=== PATIENT | male | born 1950 | race Caucasian/White ===

== ENCOUNTER → 2018-05-24 16:50 | Outpatient (CLI) | payer MEDICARE, BC, SELFPAY ==
--- NOTE | 2018-05-24 17:12 | CT_ITS ---
STUDY: CT ABDOMEN WITH AND WITHOUT CONTRAST REASON FOR EXAM: Male, 68 years old. Elevated liver enzymes. RADIATION DOSAGE (If Supplied By Facility): CTDIvol = ( 26.19 ) mGy, DLP = ( 1806.78 ) mGycm TECHNIQUE: Transaxial images were obtained pre and post I.V. administration of 100mL ml of Isovue 300, and without oral contrast. Sagittal and coronal images were reconstructed. Individualized dose optimization techniques were used for this CT. COMPARISON: None. FINDINGS: The visualized lung bases are unremarkable. The visualized portions of the heart are within normal limits. There is decreased attenuation of the liver consistent with steatosis. Normal gallbladder and extrahepatic biliary system. Normal spleen. Normal pancreas. Normal bilateral adrenal glands. Small cysts are seen in both kidneys. There is a small hiatal hernia. Normal small intestine. There are multiple colonic diverticula consistent with diverticulosis. The appendix is visualized and appears normal. There is diffuse atherosclerotic calcification of the abdominal aorta, without a demonstrated aneurysm. Normal inferior vena cava. There is borderline retroperitoneal lymphadenopathy with enlarged nodes no greater than 10mm in the short axis diameter. Normal abdominal wall. Normal osseous structures. CT/Abdomen W/WO IV Contrast IMPRESSION: Fatty infiltration of the liver. Electronically Signed: Rigoberto Bolden MD at 15:09 EDT Tel [phone], Service support ,
[2018-05-24 18:09] LABS: Amylase 43 U/L (25-115); Lipase 354 U/L (73-393)
== END ==
PROVIDERS: Family Provider Nurse Practitioner Family; PCP Nurse Practitioner Family; Visit Provider Nurse Practitioner Family
DX: R74.8 Abnormal levels of other serum enzymes (principal)
CPT/HCPCS: 36415; 74170; 82150; 83690; Q9967

== ENCOUNTER → 2018-08-10 07:37 | Outpatient (CLI) | payer MEDICARE, BC, SELFPAY ==
[2018-08-10 07:58] LABS: Absolute Lymphocyte Count 1.89 X10^3/ul (0.83-4.51); Basophil% 0.2 % (0-1); Eosinophil# 0.12 X10^3/uL; Eosinophils% 2.2 % (0-5); Hematocrit 35.2 % (40-54); Hemoglobin 11.3 g/dl (13.0-16.5); Lymphocyte # 1.89 X10^3/ul (4.0); Lymphocyte % 34.7 % (19-41); Mean Corp Hgb Conc 32.1 g/gl (32-36); Mean Corpuscular Hgb 28.9 pg (27.0-32.0); Mean Platelet Vol. 9.8 fl (6.2-12.0); Monocyte# 0.45 X10^3/uL; Monocyte% 8.3 % (0-10); Neutrophil # 2.98 X10^3/uL (2.7-7.7); Neutrophil % 54.6 % (47-70); Platelet Count 112 K/mm3 (150-450); RBC Distribution Width CV 14.5 % (11.6-14.6); RBC Distribution Width SD 47.4 fl (35.1-43.9); Red Blood Count 3.91 M/mm3 (4.6-6.2); White Blood Count 5.5 K/mm3 (4.4-11.0)
[2018-08-10 07:59] LABS: Basophil# 0.01 X10^3/uL
[2018-08-10 08:01] LABS: POSITIVE COUNT NO; POSITIVE DIFFERENTIAL NO; POSITIVE MORPHOLOGY NO
[2018-08-10 08:17] LABS: Hemoglobin A1c 9.4 % (4.2-6.3)
[2018-08-10 08:27] LABS: ALB/GLOB Ratio 0.8 RATIO (0.9-2.4); AST(SGOT) 132 U/L (15-37); Alanine Aminotransfer ALT/SGPT 196 U/L (16-61); Albumin, Serum 3.2 g/dL (3.2-5.0); Alkaline Phosphatase 101 U/L (45-117); Anion Gap 12 (5-15); BUN 24 mg/dL (7-18); BUN/Creat Ratio 20.7 RATIO (10-20); Chloride 100 mmol/L (98-107); Cholesterol 133 mg/dL (200); Creatinine, Serum 1.16 mg/dL (0.70-1.30); EST Glomerular Filtration Rate 67 mL/min (>60); Est Glom Filt Rate - Afr Amer 81 mL/min (>60); GGTP 671 U/L (15-85); Globulin 4.1 g/dL (2.2-4.2); Glucose 247 mg/dL (74-106); High Density Lipoprotein 26 mg/dL; PSA,Total - Annual Screen 1.23 ng/mL (0.00-4.00); Potassium 4.4 mmol/L (3.5-5.1); Protein, Total 7.3 g/dL (6.4-8.2); Sodium Level 136 mmol/L (136-145); Triglycerides 234 mg/dL; Uric Acid 4.9 mg/dL (3.5-7.2); Very Low Density Lipoprotein 47 mg/dL (5-40)
== END ==
PROVIDERS: Family Provider Nurse Practitioner Family; PCP Nurse Practitioner Family; Visit Provider Nurse Practitioner Family
DX: E11.9 Type 2 diabetes mellitus without complications (principal); E78.5 Hyperlipidemia, unspecified; I10 Essential (primary) hypertension; N40.0 Benign prostatic hyperplasia without lower urinary tract symptoms; R74.8 Abnormal levels of other serum enzymes; M10.9 Gout, unspecified
CPT/HCPCS: 36415; 80053; 80061; 82977; 83036; 84153; 84550; 85025; G0103

== ENCOUNTER → 2019-02-26 09:00 | Outpatient (CLI) | payer MEDICARE, BC, SELFPAY ==
[2018-12-17 08:28] VITALS: BMI 42.5
[2019-02-26 09:39] LABS: Absolute Lymphocyte Count 2.29 X10^3/ul (0.83-4.51); Absolute Neutrophil Count 3.3 X10^3/uL (2.0-7.7); Basophil# 0.02 X10^3/uL; Basophil% 0.3 % (0-1); Eosinophils% 1.6 % (0-5); Hematocrit 38.4 % (40-54); Hemoglobin 12.1 g/dl (13.0-16.5); Lymphocyte # 2.29 X10^3/ul (4.0); Lymphocyte % 36.9 % (19-41); Mean Corp Hgb Conc 31.5 g/gl (32-36); Mean Corpuscular Volume 82.4 fL (80-94); Mean Platelet Vol. 9.7 fl (6.2-12.0); Monocyte# 0.53 X10^3/uL; Monocyte% 8.5 % (0-10); Neutrophil # 3.26 X10^3/uL (2.7-7.7); Neutrophil % 52.5 % (47-70); POSITIVE COUNT NO; POSITIVE DIFFERENTIAL NO; POSITIVE MORPHOLOGY NO; Platelet Count 130 K/mm3 (150-450); RBC Distribution Width CV 15.6 % (11.6-14.6); RBC Distribution Width SD 46.3 fl (35.1-43.9); Red Blood Count 4.66 M/mm3 (4.6-6.2); White Blood Count 6.2 K/mm3 (4.4-11.0)
[2019-02-26 09:58] LABS: Microalbumin,Random Urine 88.9 mg/L (NO RANGE EST.); Microalbumin:Creatinine Ratio 111.1 mg/g CRE (<30 mg/g CRE)
[2019-02-26 10:02] LABS: Hemoglobin A1c 7.3 % (4.2-6.3)
[2019-02-26 10:19] LABS: ALB/GLOB Ratio 0.9 RATIO (0.9-2.4); AST(SGOT) 28 U/L (15-37); Alanine Aminotransfer ALT/SGPT 34 U/L (16-61); Albumin, Serum 3.7 g/dL (3.2-5.0); Alkaline Phosphatase 96 U/L (45-117); Anion Gap 8 (5-15); BUN 18 mg/dL (7-18); BUN/Creat Ratio 14.4 RATIO (10-20); Calcium,Total 9.1 mg/dL (8.5-10.1); Chloride 107 mmol/L (98-107); Cholesterol 112 mg/dL (200); Creatinine, Serum 1.25 mg/dL (0.70-1.30); EST Glomerular Filtration Rate 61 mL/min (>60); Est Glom Filt Rate - Afr Amer 74 mL/min (>60); Glucose 111 mg/dL (74-106); High Density Lipoprotein 30 mg/dL; Potassium 3.9 mmol/L (3.5-5.1); Protein, Total 7.7 g/dL (6.4-8.2); Sodium Level 142 mmol/L (136-145); Triglycerides 143 mg/dL; Uric Acid 7.9 mg/dL (3.5-7.2); Very Low Density Lipoprotein 29 mg/dL (5-40)
== END ==
PROVIDERS: Family Provider Internal Medicine; PCP Internal Medicine; Referring Provider Internal Medicine; Visit Provider Internal Medicine
DX: I34.0 Nonrheumatic mitral (valve) insufficiency (principal); E78.00 Pure hypercholesterolemia, unspecified; I10 Essential (primary) hypertension; E11.9 Type 2 diabetes mellitus without complications; M10.9 Gout, unspecified
CPT/HCPCS: 80053; 80061; 82043; 82570; 83036; 84550; 85025

== ENCOUNTER → 2019-04-23 08:44 | Outpatient (CLI) | payer MEDICARE, BC, SELFPAY ==
[2019-03-30 17:19] VITALS: BMI 42.5
[2019-04-23 10:28] LABS: Anion Gap 5 (5-15); BUN 27 mg/dL (7-18); BUN/Creat Ratio 22.9 RATIO (10-20); Calcium,Total 8.9 mg/dL (8.5-10.1); Chloride 106 mmol/L (98-107); Creatinine, Serum 1.18 mg/dL (0.70-1.30); EST Glomerular Filtration Rate 65 mL/min (>60); Est Glom Filt Rate - Afr Amer 79 mL/min (>60); Glucose 128 mg/dL (74-106); Sodium Level 140 mmol/L (136-145)
[2019-04-23 10:32] LABS: Hemoglobin A1c 7.1 % (4.2-6.3)
== END ==
PROVIDERS: Family Provider Internal Medicine; PCP Internal Medicine; Referring Provider Internal Medicine; Visit Provider Internal Medicine
DX: E11.9 Type 2 diabetes mellitus without complications (principal)
CPT/HCPCS: 36415; 80048; 83036

== ENCOUNTER → 2019-11-05 09:01 | Outpatient (CLI) | payer MEDICARE, BC, SELFPAY ==
[2019-07-07 19:13] VITALS: BMI 42.5
[2019-11-05 10:33] LABS: Anion Gap 6 (5-15); BUN 22 mg/dL (7-18); BUN/Creat Ratio 16.8 RATIO (10-20); Calcium,Total 9.3 mg/dL (8.5-10.1); Chloride 105 mmol/L (98-107); Creatinine, Serum 1.31 mg/dL (0.70-1.30); EST Glomerular Filtration Rate 58 mL/min (>60); Est Glom Filt Rate - Afr Amer 70 mL/min (>60); Glucose 136 mg/dL (74-106); Potassium 3.9 mmol/L (3.5-5.1); Sodium Level 139 mmol/L (136-145)
[2019-11-05 10:35] LABS: Microalbumin,Random Urine 96.9 mg/L (NO RANGE EST.); Microalbumin:Creatinine Ratio 87.3 mg/g CRE (<30 mg/g CRE)
== END ==
PROVIDERS: Family Provider Internal Medicine; PCP Internal Medicine; Referring Provider Internal Medicine; Visit Provider Internal Medicine
DX: I10 Essential (primary) hypertension (principal); E11.9 Type 2 diabetes mellitus without complications
CPT/HCPCS: 36415; 80048; 82043; 82570

== ENCOUNTER → 2020-06-30 | Outpatient (CLI) | payer MEDICARE, BC, SELFPAY ==
[2019-12-22 17:18] VITALS: BMI 41.7
[2020-06-30 10:14] LABS: Absolute Neutrophil Count 4.4 X10^3/uL (2.0-7.7); Basophil# 0.03 X10^3/uL; Basophil% 0.4 % (0-1); Eosinophil# 0.14 X10^3/uL; Eosinophils% 1.8 % (0-5); Hematocrit 40.2 % (40-54); Hemoglobin 12.6 g/dL (13.0-16.5); Lymphocyte % 32.5 % (19-41); Mean Corp Hgb Conc 31.3 g/dL (32-36); Mean Corpuscular Hgb 26.4 pg (27.0-32.0); Mean Corpuscular Volume 84.3 fL (80-94); Monocyte% 7.8 % (0-10); NRBC Flagged by Analyzer 0 % (0-5); Neutrophil # 4.41 X10^3/uL (2.7-7.7); Neutrophil % 57.2 % (47-70); Platelet Count 188 K/mm3 (150-450); RBC Distribution Width CV 15.2 % (11.6-14.6); RBC Distribution Width SD 46.5 fl (35.1-43.9); Red Blood Count 4.77 M/mm3 (4.6-6.2); White Blood Count 7.7 K/mm3 (4.4-11.0)
[2020-06-30 10:26] LABS: Hemoglobin A1c 7.3 % (3.8-5.6)
[2020-06-30 10:32] LABS: Microalbumin,Random Urine 22.9 mg/L (NO RANGE EST.); Microalbumin:Creatinine Ratio 139.6 mg/g CRE (<30 mg/g CRE)
[2020-06-30 10:35] LABS: ALB/GLOB Ratio 0.8 RATIO (0.9-2.4); AST(SGOT) 36 U/L (15-37); Alanine Aminotransfer ALT/SGPT 47 U/L (16-61); Albumin, Serum 3.6 g/dL (3.2-5.0); Alkaline Phosphatase 92 U/L (45-117); Anion Gap 4 (5-15); BUN 25 mg/dL (7-18); BUN/Creat Ratio 20.8 RATIO (10-20); Calcium,Total 9.3 mg/dL (8.5-10.1); Chloride 105 mmol/L (98-107); Cholesterol 149 mg/dL (200); EST Glomerular Filtration Rate 64 mL/min (>60); Est Glom Filt Rate - Afr Amer 77 mL/min (>60); Globulin 4.4 g/dL (2.2-4.2); Glucose 108 mg/dL (74-106); High Density Lipoprotein 25 mg/dL; Potassium 3.9 mmol/L (3.5-5.1); Sodium Level 137 mmol/L (136-145); Triglycerides 299 mg/dL; Very Low Density Lipoprotein 60 mg/dL (5-40)
== END | disposition home or self-care (01) ==
PROVIDERS: PCP Internal Medicine; Referring Provider Internal Medicine; Visit Provider Internal Medicine
DX: I10 Essential (primary) hypertension (principal); E11.9 Type 2 diabetes mellitus without complications
CPT/HCPCS: 36415; 80053; 80061; 82043; 82570; 83036; 85025

== ENCOUNTER → 2020-07-10 09:53 | Outpatient (CLI) | payer MEDICARE, BC, SELFPAY ==
[2020-07-10 09:34] VITALS: BMI 30.1
[2020-07-10 12:48] LABS: PSA,Total - Annual Screen 1.78 ng/mL (0.00-4.00)
== END ==
PROVIDERS: PCP Internal Medicine; Referring Provider Internal Medicine; Visit Provider Internal Medicine
DX: N40.0 Benign prostatic hyperplasia without lower urinary tract symptoms (principal)
CPT/HCPCS: 36415; 84153; G0103

== ENCOUNTER → 2021-05-13 13:57 | Outpatient (CLI) | payer MEDICARE, BC, SELFPAY ==
[2021-05-13 13:23] VITALS: BMI 42.9
[2021-05-13 15:26] LABS: Absolute Lymphocyte Count 2.51 X10^3/uL (0.83-4.51); Absolute Neutrophil Count 4.8 X10^3/uL (2.0-7.7); Basophil# 0.02 X10^3/uL; Basophil% 0.2 % (0-1); Eosinophils% 2.4 % (0-5); Hematocrit 43.6 % (40-54); Hemoglobin 13.7 g/dL (13.0-16.5); Lymphocyte # 2.51 X10^3/ul (0.83-4.51); Lymphocyte % 30.4 % (19-41); Mean Corp Hgb Conc 31.4 g/dL (32-36); Mean Corpuscular Hgb 27.2 pg (27.0-32.0); Mean Corpuscular Volume 86.5 fL (80-94); Mean Platelet Vol. 10.2 fl (6.2-12.0); Monocyte% 8.5 % (0-10); NRBC Flagged by Analyzer 0 % (0-5); Neutrophil # 4.78 X10^3/uL (2.7-7.7); Platelet Count 158 K/mm3 (150-450); RBC Distribution Width CV 14.7 % (11.6-14.6); RBC Distribution Width SD 46.5 fl (35.1-43.9); Red Blood Count 5.04 M/mm3 (4.6-6.2); White Blood Count 8.3 K/mm3 (4.4-11.0)
[2021-05-13 15:47] LABS: ALB/GLOB Ratio 0.9 RATIO (0.9-2.4); AST(SGOT) 40 U/L (15-37); Alanine Aminotransfer ALT/SGPT 72 U/L (16-61); Albumin, Serum 3.8 g/dL (3.2-5.0); Alkaline Phosphatase 111 U/L (45-117); Anion Gap 9 (5-15); BUN 27 mg/dL (7-18); BUN/Creat Ratio 22.1 RATIO (10-20); Calcium,Total 9.4 mg/dL (8.5-10.1); Chloride 102 mmol/L (98-107); Cholesterol 126 mg/dL (200); Creatinine, Serum 1.22 mg/dL (0.70-1.30); EST Glomerular Filtration Rate 62 mL/min (>60); Est Glom Filt Rate - Afr Amer 76 mL/min (>60); Globulin 4.2 g/dL (2.2-4.2); Glucose 156 mg/dL (74-106); High Density Lipoprotein 29 mg/dL; Sodium Level 137 mmol/L (136-145); Triglycerides 268 mg/dL; Very Low Density Lipoprotein 54 mg/dL (5-40)
== END ==
PROVIDERS: PCP Internal Medicine; Referring Provider Internal Medicine; Visit Provider Internal Medicine
DX: E11.9 Type 2 diabetes mellitus without complications (principal)
CPT/HCPCS: 36415; 80053; 80061; 82043; 82570; 85025

== ENCOUNTER 2021-07-26 17:06 | Outpatient (CLI) | payer MEDICARE, BC, SELFPAY ==
[2021-07-26 17:48] VITALS: BP 148/68; PULSE 91; RESP 20; TEMP 37.6; O2SAT 94; BMI 39.9
[2021-07-26] MEDS: 0.9% Saline Lock 10 ML Syringe IV (17:53)
[2021-07-26 18:30] VITALS: BP 138/73; PULSE 83; RESP 20; TEMP 37.5; O2SAT 97
[2021-07-26 19:30] VITALS: BP 151/77; PULSE 81; RESP 18; TEMP 37; O2SAT 97
== END 2021-07-26 19:34 | disposition home or self-care (01) ==
LOC: ICUOUT 17:06 → MS2 17:30
PROVIDERS: PCP Internal Medicine; Referring Provider Nurse Practitioner Acute Care; Visit Provider Nurse Practitioner Acute Care
DX: Z23 Encounter for immunization (principal); U07.1 COVID-19
CPT/HCPCS: J7050; M0243; A4216; Q0244

== ENCOUNTER → 2021-08-14 14:20 | Outpatient (CLI) | payer MEDICARE, BC, SELFPAY ==
[2021-08-14 15:22] LABS: Anion Gap 8 (5-15); BUN 32 mg/dL (7-18); BUN/Creat Ratio 30.5 RATIO (10-20); Calcium,Total 9.5 mg/dL (8.5-10.1); Chloride 102 mmol/L (98-107); Creatinine, Serum 1.05 mg/dL (0.70-1.30); EST Glomerular Filtration Rate 74 mL/min (>60); Est Glom Filt Rate - Afr Amer 90 mL/min (>60); Glucose 125 mg/dL (74-106); Potassium 4.1 mmol/L (3.5-5.1); Sodium Level 137 mmol/L (136-145)
== END ==
PROVIDERS: PCP Internal Medicine; Referring Provider Internal Medicine; Visit Provider Internal Medicine
DX: E11.9 Type 2 diabetes mellitus without complications (principal); I10 Essential (primary) hypertension
CPT/HCPCS: 36415; 80048

== ENCOUNTER → 2022-05-05 | Outpatient (CLI) | payer MEDICARE, BC, SELFPAY ==
[2022-05-05 12:31] LABS: Absolute Lymphocyte Count 2.25 X10^3/uL (0.83-4.51); Absolute Neutrophil Count 3.6 X10^3/uL (2.0-7.7); Basophil# 0.03 X10^3/uL; Basophil% 0.5 % (0-1); Eosinophil# 0.19 X10^3/uL; Eosinophils% 2.9 % (0-5); Hematocrit 42.4 % (40-54); Hemoglobin 13.5 g/dL (13.0-16.5); Lymphocyte # 2.25 X10^3/ul (0.83-4.51); Lymphocyte % 33.8 % (19-41); Mean Corp Hgb Conc 31.8 g/dL (32-36); Mean Corpuscular Hgb 28.1 pg (27.0-32.0); Mean Corpuscular Volume 88.3 fL (80-94); Mean Platelet Vol. 10.2 fl (6.2-12.0); Monocyte# 0.58 X10^3/uL; Monocyte% 8.7 % (0-10); NRBC Flagged by Analyzer 0 % (0-5); Neutrophil # 3.57 X10^3/uL (2.7-7.7); Neutrophil % 53.6 % (47-70); Platelet Count 140 K/mm3 (150-450); RBC Distribution Width CV 14.6 % (11.6-14.6); RBC Distribution Width SD 46.9 fl (35.1-43.9); White Blood Count 6.7 K/mm3 (4.4-11.0)
[2022-05-05 13:04] LABS: ALB/GLOB Ratio 0.9 RATIO (0.9-2.4); AST(SGOT) 75 U/L (15-37); Alanine Aminotransfer ALT/SGPT 114 U/L (16-61); Albumin, Serum 3.7 g/dL (3.2-5.0); Alkaline Phosphatase 80 U/L (45-117); Anion Gap 9 (5-15); BUN 26 mg/dL (7-18); Calcium,Total 9.4 mg/dL (8.5-10.1); Chloride 103 mmol/L (98-107); Cholesterol 139 mg/dL (200); Creatinine, Serum 1.18 mg/dL (0.70-1.30); EST Glomerular Filtration Rate 65 mL/min (>60); Est Glom Filt Rate - Afr Amer 78 mL/min (>60); Globulin 3.9 g/dL (2.2-4.2); Glucose 170 mg/dL (74-106); High Density Lipoprotein 31 mg/dL; Potassium 3.7 mmol/L (3.5-5.1); Protein, Total 7.6 g/dL (6.4-8.2); Sodium Level 137 mmol/L (136-145); Triglycerides 236 mg/dL; Very Low Density Lipoprotein 47 mg/dL (5-40)
== END | disposition home or self-care (01) ==
LOC: BIMLAB 09:13
PROVIDERS: PCP Internal Medicine; Referring Provider Internal Medicine; Visit Provider Internal Medicine
DX: E11.9 Type 2 diabetes mellitus without complications (principal)
CPT/HCPCS: 36415; 80053; 80061; 85025

== ENCOUNTER → 2022-09-08 | Outpatient (CLI) | payer MEDICARE, BC, SELFPAY ==
[2022-09-08 12:10] LABS: Absolute Lymphocyte Count 2.01 X10^3/uL (0.83-4.51); Absolute Neutrophil Count 4.1 X10^3/uL (2.0-7.7); Basophil# 0.02 X10^3/uL; Basophil% 0.3 % (0-1); Eosinophil# 0.12 X10^3/uL; Eosinophils% 1.7 % (0-5); Hematocrit 42.1 % (40-54); Hemoglobin 13.4 g/dL (13.0-16.5); Lymphocyte # 2.01 X10^3/ul (0.83-4.51); Lymphocyte % 28.7 % (19-41); Mean Corp Hgb Conc 31.8 g/dL (32-36); Mean Corpuscular Hgb 27.9 pg (27.0-32.0); Mean Corpuscular Volume 87.5 fL (80-94); Mean Platelet Vol. 9.8 fl (6.2-12.0); Monocyte# 0.69 X10^3/uL; Monocyte% 9.8 % (0-10); NRBC Flagged by Analyzer 0 % (0-5); Neutrophil # 4.14 X10^3/uL (2.7-7.7); Neutrophil % 59.1 % (47-70); Platelet Count 137 K/mm3 (150-450); RBC Distribution Width CV 14.9 % (11.6-14.6); RBC Distribution Width SD 48.3 fl (35.1-43.9); Red Blood Count 4.81 M/mm3 (4.6-6.2)
[2022-09-08 12:32] LABS: ALB/GLOB Ratio 0.8 RATIO (0.9-2.4); AST(SGOT) 45 U/L (15-37); Alanine Aminotransfer ALT/SGPT 74 U/L (16-61); Albumin, Serum 3.5 g/dL (3.2-5.0); Alkaline Phosphatase 73 U/L (45-117); Anion Gap 9 (5-15); BUN 30 mg/dL (7-18); BUN/Creat Ratio 25.6 RATIO (10-20); Calcium,Total 9.3 mg/dL (8.5-10.1); Chloride 104 mmol/L (98-107); Creatinine, Serum 1.17 mg/dL (0.70-1.30); EST Glomerular Filtration Rate 65 mL/min (>60); Est Glom Filt Rate - Afr Amer 79 mL/min (>60); Globulin 4.3 g/dL (2.2-4.2); Glucose 143 mg/dL (74-106); Potassium 3.7 mmol/L (3.5-5.1); Protein, Total 7.8 g/dL (6.4-8.2); Sodium Level 139 mmol/L (136-145)
== END | disposition home or self-care (01) ==
LOC: BIMLAB 10:53
PROVIDERS: PCP Internal Medicine; Referring Provider Internal Medicine; Visit Provider Internal Medicine
DX: E11.9 Type 2 diabetes mellitus without complications (principal)
CPT/HCPCS: 36415; 80053; 85025

== ENCOUNTER → 2023-05-20 | Outpatient (CLI) | payer MEDICARE, BC, SELFPAY ==
[2023-05-20 12:44] LABS: Absolute Lymphocyte Count 2.77 X10^3/uL (0.83-4.51); Basophil# 0.03 X10^3/uL; Basophil% 0.4 % (0-1); Eosinophil# 0.17 X10^3/uL; Eosinophils% 2.3 % (0-5); Hematocrit 43.7 % (40-54); Hemoglobin 13.8 g/dL (13.0-16.5); Lymphocyte # 2.77 X10^3/ul (0.83-4.51); Lymphocyte % 36.7 % (19-41); Mean Corp Hgb Conc 31.6 g/dL (32-36); Mean Corpuscular Hgb 28.6 pg (27.0-32.0); Mean Corpuscular Volume 90.7 fL (80-94); Mean Platelet Vol. 9.8 fl (6.2-12.0); Monocyte# 0.58 X10^3/uL; Monocyte% 7.7 % (0-10); NRBC Flagged by Analyzer 0 % (0-5); Neutrophil # 3.97 X10^3/uL (2.7-7.7); Neutrophil % 52.6 % (47-70); Platelet Count 154 K/mm3 (150-450); RBC Distribution Width CV 14.5 % (11.6-14.6); RBC Distribution Width SD 47.3 fl (35.1-43.9); Red Blood Count 4.82 M/mm3 (4.6-6.2); White Blood Count 7.5 K/mm3 (4.4-11.0)
[2023-05-20 13:48] LABS: ALB/GLOB Ratio 0.9 RATIO (0.9-2.4); AST(SGOT) 53 U/L (15-37); Alanine Aminotransfer ALT/SGPT 88 U/L (16-61); Albumin, Serum 3.8 g/dL (3.2-5.0); Alkaline Phosphatase 68 U/L (45-117); Anion Gap 8 (5-15); BUN 33 mg/dL (7-18); BUN/Creat Ratio 24.1 RATIO (10-20); Calcium,Total 8.9 mg/dL (8.5-10.1); Chloride 106 mmol/L (98-107); Cholesterol 129 mg/dL (200); Creatinine, Serum 1.37 mg/dL (0.70-1.30); EST Glomerular Filtration Rate 54 mL/min (>60); Est Glom Filt Rate - Afr Amer 66 mL/min (>60); Globulin 4.3 g/dL (2.2-4.2); Glucose 126 mg/dL (74-106); High Density Lipoprotein 30 mg/dL; PSA,Total - Annual Screen 2.12 ng/mL (0.00-4.00); Potassium 3.4 mmol/L (3.5-5.1); Protein, Total 8.1 g/dL (6.4-8.2); Sodium Level 137 mmol/L (136-145); Thyroid Stim Hormone (TSH) 0.74 uIU/mL (0.358-3.74); Triglycerides 226 mg/dL; Very Low Density Lipoprotein 45 mg/dL (5-40)
[2023-05-20 14:06] LABS: Microalbumin:Creatinine Ratio 146.1 mg/g CRE (<30 mg/g CRE)
== END | disposition home or self-care (01) ==
LOC: BIMLAB 08:05
PROVIDERS: PCP Internal Medicine; Referring Provider Nurse Practitioner Family; Visit Provider Nurse Practitioner Family
DX: I07.1 Rheumatic tricuspid insufficiency (principal); E11.69 Type 2 diabetes mellitus with other specified complication; Z79.4 Long term (current) use of insulin; I10 Essential (primary) hypertension; E78.00 Pure hypercholesterolemia, unspecified; N40.0 Benign prostatic hyperplasia without lower urinary tract symptoms; D64.9 Anemia, unspecified
CPT/HCPCS: 36415; 80053; 80061; 82043; 82570; 83036; 84153; 84443; 85025; G0103

== ENCOUNTER 2024-05-22 10:32 | Emergency (ER) | payer MEDICARE, BC, SELFPAY ==
[2024-05-22] VITALS (7 sets, daily range): BP systolic 109–180; BP diastolic 55–72; PULSE 83–114; RESP 16–23; TEMP 37.2–38.3; O2SAT 94–97; BMI 40.7
--- NOTE | 2024-05-22 11:05 | EKG12_ITS ---
Test Reason : Blood Pressure : / mmHG Vent. Rate : 103 BPM Atrial Rate : 103 BPM P-R Int : 192 ms QRS Dur : 102 ms QT Int : 344 ms P-R-T Axes : 044 -02 070 degrees QTc Int : 450 ms Sinus tachycardia Otherwise normal ECG Confirmed by Antoni Vale ([id number]), proposal editor JILLIAN MCKAY ([id number]) on 05/24/2024 7:57:19 AM Referred By: Confirmed By:Antoni Vale
--- NOTE | 2024-05-22 11:13 | NURSING ---
NO OLD EKGS
[2024-05-22] MEDS: 0.9% Normal Saline (1000mL) 1,000 ML 150 ML IV (11:24)
[2024-05-22] MEDS: Acetaminophen 500 MG Tablet 1000 MG PO (11:24)
--- NOTE | 2024-05-22 11:31 | RAD_ITS ---
STUDY: X-RAY CHEST REASON FOR EXAM: Male, 74 years old. fever TECHNIQUE: Single AP portable view of the chest. COMPARISON: None. FINDINGS: EKG leads overlie the chest The lungs are clear and expanded. There is no demonstrated pleural abnormality. Normal size heart. Normal mediastinum and darrel. Normal visualized pulmonary arteries. Normal visualized aortic arch and descending thoracic aorta. Normal visualized thoracic spine. Normal visualized ribs, clavicles, and shoulders. There is no demonstrated abnormality of the visualized soft tissue structures of the upper abdomen. RAD/Chest 1 View (Portable) IMPRESSION: No acute pulmonary process Electronically Signed: Nickolas Sánchez MD at 11:54 EDT ,
[2024-05-22 11:35] LABS: Absolute Lymphocyte Count 0.62 X10^3/uL (0.83-4.51); Absolute Neutrophil Count 4.2 X10^3/uL (2.0-7.7); Basophil# 0.01 X10^3/uL; Basophil% 0.2 % (0-1); Eosinophil# 0.03 X10^3/uL; Eosinophils% 0.6 % (0-5); Hemoglobin 12.5 g/dL (13.0-16.5); Lymphocyte # 0.62 X10^3/ul (0.83-4.51); Lymphocyte % 11.4 % (19-41); Mean Corp Hgb Conc 32.9 g/dL (32-36); Mean Corpuscular Volume 88.2 fL (80-94); Mean Platelet Vol. 9.8 fl (6.2-12.0); Monocyte# 0.58 X10^3/uL; Monocyte% 10.7 % (0-10); NRBC Flagged by Analyzer 0 % (0-5); Neutrophil # 4.16 X10^3/uL (2.7-7.7); Neutrophil % 76.7 % (47-70); POSITIVE COUNT YES; Platelet Count 92 K/mm3 (150-450); RBC Distribution Width CV 14.4 % (11.6-14.6); RBC Distribution Width SD 46.9 fl (35.1-43.9); Red Blood Count 4.31 M/mm3 (4.6-6.2); White Blood Count 5.4 K/mm3 (4.4-11.0)
[2024-05-22 11:38] LABS: Differential Indicated SCAN CRITERIA MET
[2024-05-22 11:43] LABS: ALB/GLOB Ratio 0.8 RATIO (0.9-2.4); AST(SGOT) 52 U/L (15-37); Alanine Aminotransfer ALT/SGPT 61 U/L (16-61); Alkaline Phosphatase 73 U/L (45-117); Anion Gap 8 (5-15); BUN 35 mg/dL (7-18); BUN/Creat Ratio 24.5 RATIO (10-20); Calcium,Total 8.5 mg/dL (8.5-10.1); Chloride 97 mmol/L (98-107); Creatinine, Serum 1.43 mg/dL (0.70-1.30); EST Glomerular Filtration Rate 52 mL/min (>60); Est Glom Filt Rate - Afr Amer 62 mL/min (>60); Estimated Creatinine Clearance 63.88 ml/min; Glucose 168 mg/dL (74-106); Potassium 3.7 mmol/L (3.5-5.1); Sodium Level 129 mmol/L (136-145)
[2024-05-22 11:44] LABS: International Normalized Ratio 1.2; Prothrombin Time (Protime)PT. 15.6 SECONDS (11.7-14.9)
[2024-05-22 11:45] LABS: Partial Thromboplast Time 35.2 Seconds (24.1-36.2)
[2024-05-22 11:55] LABS: Bacteria 0 SEEN /hpf (None Seen); Mucous, Urine 0 SEEN /hpf (<or=2+); Red Blood Cells-Urine 0 SEEN /hpf (0-5); Squamous Epithelial Cells - UA 0 SEEN /hpf (0-5); White Blood Cells 0 SEEN /hpf (0-5)
[2024-05-22 11:59] LABS: Differential Comment SCANNED
[2024-05-22 12:01] LABS: Color, Urine Yellow (Yellow); Glucose, Dipstick 1000 mg/dl (Normal); Ketone-Dipstick Negative (Negative); Leukocyte Esterase-Dipstick Negative /ul (Negative); Nitrite-Dipstick Negative (Negative); Occult Blood-Urine Negative /ul (Negative); Protein-Dipstick 30 mg/dl (Negative); Urine Bilirubin Dipstick Negative (Negative); Urine Clarity Clear (Clear); Urine Urobilinogen Normal (Normal)
--- NOTE | 2024-05-22 14:17 | EX.ED.DYSGE1 ---
HPI History of Present Illness Chief Complaint: General Illness Informant: patient Onset/Context/Timing Onset: Days (3 days) Narrative Narrative: Patient presents with 3-day history of fever, body aches, mild cough. Patient reports his temp has been up to 103. It will improve with Tylenol. He has not had any rashes or lesions. He will have very mild dysuria and urgency. PFSH PFSH Medical History Sinusitis Morbid obesity COVID-19 Routine health maintenance Colon cancer screening Mitral valve regurgitation Heart murmur GERD (gastroesophageal reflux disease) Anemia BPH (benign prostatic hyperplasia) Obstructive sleep apnea Tricuspid valve regurgitation Kidney stones High cholesterol Hypertension Gout Diabetes Back problem Seasonal allergies Alcohol abuse Home Medications ?Medication ?Instructions ?Recorded ?Last Taken ?Type cinnamon bark 500 mg capsule 500 mg PO DAILY 12/17/18 Unknown History (Cinnamon) blood-glucose meter (FreeStyle #1 ea 09/10/20 Unknown Rx Lite Meter kit) lancets 28 gauge (FreeStyle #200 ea 09/10/20 Unknown Rx Lancets) insulin needles (disposable) 30 X ##1 12/24/20 Unknown History 3/4 Insulin needles #200 ea 12/25/20 Unknown Rx insulin glargine 100 unit/mL (3 50 unit (0.5 mL) subcut QPM 3 08/11/22 Unknown Rx mL) subcutaneous pen (Lantus months #45 mL Solostar U-100 Insulin) pen needle, diabetic 32 gauge x #200 ea 10/10/22 Unknown Rx 1/4 (BD Ultra-Fine Micro Pen Needle) esomeprazole magnesium 40 mg 40 mg PO DAILY #90 caps 11/25/22 Unknown Rx capsule,delayed release allopurinol 100 mg tablet 100 mg PO DAILY #90 tabs 01/26/23 Unknown Rx simvastatin 20 mg tablet 20 mg PO QHS #90 tabs 01/28/23 Unknown Rx blood sugar diagnostic (FreeStyle #200 ea 03/16/23 Unknown Rx Lite Strips) dapagliflozin propanediol 10 mg 10 mg PO DAILY #90 tabs 06/08/23 Unknown Rx tablet valsartan 320 mg tablet See Rx Instructions .Route 10/16/23 Unknown Rx .COMPLEX #90 tabs aspirin 81 mg capsule 81 mg PO DAILY 05/22/24 Unknown History dapagliflozin propanediol 10 mg 10 mg PO DAILY 05/22/24 Unknown History tablet (Farxiga) hydrochlorothiazide 25 mg tablet 12.5 mg PO QAM 05/22/24 Unknown History sitagliptin phosphate 100 mg 100 mg PO DAILY 05/22/24 Unknown History tablet (Januvia) tirzepatide 5 mg/0.5 mL 10 mg subcut QWEEK 05/22/24 Unknown History subcutaneous pen injector (Angelique) Allergy/AdvReac Type Severity Reaction Status Date / Time No Known Allergies Allergy Verified 05/22/24 10:36 Family History Father Arthritis Myocardial infarction Hypertension Social History Smoking Status: Never smoker Tobacco: How many years used: 5 how long ago did patient quit smoking: Approx 20 yrs ago (1998) alcohol intake: former year quit: 2018 substance use type: does not use what type of physical activity do you participate in: bicycling frequency: daily ROS ROS ED Constitutional Constitutional ED: Reports chills, fever(s) and sweats Eyes Eyes: Denies change in vision ENT ENT ED: Denies rhinorrhea or sore throat Cardiovascular Cardiovascular: Denies chest pain or palpitations Respiratory/Chest Respiratory/Chest: Reports cough; Denies dyspnea Gastrointestinal Gastrointestinal: Denies abdominal pain, diarrhea, nausea or vomiting Genitourinary Genitourinary ED: Reports dysuria and other Details: Urgency Musculoskeletal Musculoskeletal: Reports myalgias Integumentary Denies Abrasions or rash Neurologic Neurologic: Denies headache(s) or weakness Psychiatric Psychiatric: Denies anxiety or depression Allergic/Immunologic Allergic/Immunologic ED: Denies lip swelling or urticaria EXAM Physical Exam Const Vital Signs: 05/22/24 10:33 05/22/24 11:24 05/22/24 11:24 Temperature 100.3 F H Temperature Source Temporal Pulse Rate 114 H Respiratory Rate 20 H Respiratory Effort Normal Respiratory Pattern Normal Blood Pressure 180/72 H Blood Pressure Mean 108 Pulse Ox 97 Oxygen Delivery Method Room Air Room Air 05/22/24 11:32 05/22/24 11:35 05/22/24 12:11 Temperature 101 F H 100 F H Temperature Source Oral Oral Pulse Rate 99 96 95 Respiratory Rate 23 H 18 19 H Respiratory Effort Respiratory Pattern Blood Pressure 124/61 H 124/61 H 109/63 Blood Pressure Mean 82 82 78 Pulse Ox 95 97 96 Oxygen Delivery Method Room Air Room Air Room Air 05/22/24 13:00 05/22/24 14:00 05/22/24 14:19 Temperature 99 F 98.9 F 98.9 F Temperature Source Oral Oral Pulse Rate 87 83 85 Respiratory Rate 16 16 16 Respiratory Effort Respiratory Pattern Blood Pressure 113/62 114/57 L 112/55 L Blood Pressure Mean 79 76 74 Pulse Ox 94 94 95 Oxygen Delivery Method Room Air Room Air Positive well nourished and well developed General Appearance ED: well developed HEENT Reports moist mucous membranes Eyes EOMs intact bilaterally Chest Wall inspection of chest normal and palpation of chest normal Resp normal respiratory effort and clear to auscultation bilaterally Cardio regular rate and regular rhythm GI non-tender Auscultation: normoactive bowel sounds Palpation: soft Back/Spine no CVA tenderness Extremity normal to inspection Neuro oriented x3 and no sensory deficits noted Motor Exam: strength 5/5 throughout Psych mental status grossly normal Skin no rashes or lesions noted MDM MDM MDM Narrative Medical decision making narrative: Patient placed on playground monitor. EKG obtained to evaluate for cardiac arrhythmia/ischemia. Chest x-ray obtained to evaluate for acute lung pathology, cardiac size, or mediastinal abnormality. Patient given Tylenol for low-grade temperature of 100.3 here. Blood and urine cultures were obtained. Labwork obtained to evaluate for leukocytosis, anemia, and electrolyte derangement. Urinalysis obtained to evaluate for infection/hematuria. Swab for COVID, influenza, and RSV will be obtained. History & Record Review Discussion w/independent historian: Patient and Significant other Lab Data Attestation: I reviewed the patient's lab results. Labs: Laboratory Results - last 24 hr 05/22/24 05/22/24 11:16 11:45 WBC 5.4 RBC 4.31 L Hgb 12.5 L Hct 38.0 L MCV 88.2 MCH 29.0 MCHC 32.9 RDW Std Deviation 46.9 H RDW Coeff of [place] 14.4 Plt Count 92 L MPV 9.8 Immature Gran % (Auto) 0.400 Neut % (Auto) 76.7 H Lymph % (Auto) 11.4 L [place] % (Auto) 10.7 H Eos % (Auto) 0.6 Baso % (Auto) 0.2 Absolute Neuts (auto) 4.2 Absolute Lymphs (auto) 0.62 L Nucleated RBC % 0 Differential Comment SCANNED PT 15.6 H INR 1.2 APTT 35.2 Sodium 129 L Potassium 3.7 Chloride 97 L Carbon Dioxide 24.0 Anion Gap 8 BUN 35 H Creatinine 1.43 H Estim Creat Clear Calc 63.88 Est GFR (MDRD) Af Amer 62 Est GFR (MDRD) Non-Af 52 L BUN/Creatinine Ratio 24.5 H Glucose 168 H Lactic Acid 1.0 Calcium 8.5 Total Bilirubin 1.20 H AST 52 H ALT 61 Alkaline Phosphatase 73 Total Protein 7.0 Albumin 3.0 L Globulin 4.0 Albumin/Globulin Ratio 0.8 L Urine Color Yellow Urine Clarity Clear Urine pH 6.0 Ur Specific [place] 1.010 Urine Protein 30 H Urine Glucose (UA) 1000 H Urine Ketones Negative Urine Occult Blood Negative Urine Nitrite Negative Urine Bilirubin Negative Urine Urobilinogen Normal Ur Leukocyte Esterase Negative Urine RBC 0 SEEN Urine WBC 0 SEEN Ur Squamous Epith Cells 0 SEEN Urine Bacteria 0 SEEN Urine Mucus 0 SEEN Radiography Chest X-Ray - ED: 1 View, Read by ED Physician, Chronic Changes and No Infiltrates Diagnostic Testing: Clinical Impression(s) from Imaging Studies Chest X-Ray 05/22/24 11:31 IMPRESSION: No acute pulmonary process Electronically Signed: Nickolas Sánchez MD at 11:54 EDT , EKG Initial EKG: Attestation: I personally reviewed and interpreted this EKG as follows: Interpretation: Sinus Tachycardia (Sinus tach at 103. No acute ischemia.) Treatment and Re-Evaluation :: CBC reveals normal white count 5.4 with 76% neutrophils. Hemoglobin is 12.5. Coags are unremarkable. Chemistry studies reveal a sodium of 129. Previous sodium was 137 a year ago. BUN is 35 and creatinine is 1.43. Glucose is 168. LFTs are unremarkable. Urinalysis reveals no evidence of infection. Portable chest x-ray per my interpretation was chronic changes with no evidence of focal infiltrate. Radiology interpretation reviewed and agrees. Swab for COVID, influenza, and RSV is obtained. This returns negative. On repeat exam patient is resting comfortably and is nontoxic-appearing. His repeat temperature is 98.9. He has had normal vital signs. Test results are discussed with he and at bedside. We did discuss his low sodium level. He has been drinking a lot of water and we did discuss using Gatorade or Powerade to help provide some of the salts. I do not have an obvious source of infection at this time but his symptoms are consistent with viral syndrome. He was advised that if his cultures returned positive he will receive a phone call for treatment. Return instructions were provided. Discharge Plan Triage Chief Complaint: General Illness ED Provider: Martine Patton Dx/Rx/DC Orders Clinical Impression: Viral syndrome Instructions: ED Viral Syndrome (Adult) Prescriptions: No Action cinnamon bark [Cinnamon] 500 mg capsule 500 mg PO DAILY (DME) blood-glucose meter [FreeStyle Lite Meter] Kit See Rx Instructions .ROUTE .MEDSUPPLY Qty: 1 0RF Rx Instructions: As directed, check blood glucose daily for type 2 DM (DME) lancets [FreeStyle Lancets] 28 gauge misc See Rx Instructions .ROUTE .MEDSUPPLY Qty: 200 3RF Rx Instructions: check blood glucose 3x daily for type 2 DM (DME) insulin needles (disposable) 30 X 3/4 needle See Rx Instructions .ROUTE .MEDSUPPLY Qty: 1 Rx Instructions: As directed Lantus Solostar U-100 Insulin 100 unit/mL (3 mL) insulin pen 50 unit SC QPM 90 Days Qty: 45 3RF Januvia 100 mg tablet 100 mg PO DAILY dapagliflozin propanediol [Farxiga] 10 mg tablet 10 mg PO DAILY aspirin 81 mg capsule 81 mg PO DAILY hydrochlorothiazide 25 mg tablet 12.5 mg PO QAM Mounjaro 5 mg/0.5 mL pen injector 10 mg subcut QWEEK (DME) Insulin needles See Rx Instructions .Route .MEDSUPPLY Qty: 200 3RF Rx Instructions: TID, As directed (DME) pen needle, diabetic [BD Ultra-Fine Micro Pen Needle] 32 gauge x 1/4 needle See Rx Instructions .ROUTE .MEDSUPPLY Qty: 200 3RF Rx Instructions: TID, As directed esomeprazole magnesium 40 mg capsule,delayed release(DR/EC) 40 mg PO DAILY Qty: 90 3RF allopurinol 100 mg tablet 100 mg PO DAILY Qty: 90 3RF simvastatin 20 mg tablet 20 mg PO QHS Qty: 90 3RF (DME) FreeStyle Lite Strips Strip See Rx Instructions .ROUTE .MEDSUPPLY Qty: 200 3RF Rx Instructions: check blood glucose 3x daily for type 2 DM dapagliflozin propanediol 10 mg tablet 10 mg PO DAILY Qty: 90 3RF valsartan 320 mg tablet See Rx Instructions .ROUTE .COMPLEX Qty: 90 0RF Dose Instruction: TAKE 1 TABLET DAILY Rx Instructions: TAKE 1 TABLET DAILY Primary Care Provider: Juan Peñaloza Referrals: Juan Peñaloza, RECEIVABLE MANAGER-C [Primary Care Provider] - 5-7 Days Print Language: Thai Disposition Disposition: Home, Self Care Discharge Date/Time: 05/22/24 14:23
== END 2024-05-22 14:23 | disposition home or self-care (01) ==
PROVIDERS: Emergency Provider Emergency Medicine; PCP Nurse Practitioner Family; Visit Provider Emergency Medicine
DX: B34.9 Viral infection, unspecified (principal); E11.9 Type 2 diabetes mellitus without complications; E78.00 Pure hypercholesterolemia, unspecified; Z87.891 Personal history of nicotine dependence; I10 Essential (primary) hypertension; K21.9 Gastro-esophageal reflux disease without esophagitis; R30.0 Dysuria; R39.15 Urgency of urination; Z79.899 Other long term (current) drug therapy; Z79.82 Long term (current) use of aspirin; Z79.85 Long-term (current) use of injectable non-insulin antidiabetic drugs; R50.9 Fever, unspecified
CPT/HCPCS: 71045; 80053; 81001; 83605; 85025; 85610; 85730; 87040; 87086; 87631; 93005; 96360; 96361; 99284; J7030; A4216

== ENCOUNTER → 2024-05-26 | Outpatient (CLI) | payer MEDICARE, BC, SELFPAY ==
[2024-05-26 12:48] LABS: Absolute Lymphocyte Count 1.38 X10^3/uL (0.83-4.51); Absolute Neutrophil Count 6.4 X10^3/uL (2.0-7.7); Basophil# 0.02 X10^3/uL; Basophil% 0.2 % (0-1); Eosinophil# 0.18 X10^3/uL; Eosinophils% 2.2 % (0-5); Hematocrit 37.2 % (40-54); Hemoglobin 12.4 g/dL (13.0-16.5); Lymphocyte # 1.38 X10^3/ul (0.83-4.51); Lymphocyte % 16.8 % (19-41); Mean Corp Hgb Conc 33.3 g/dL (32-36); Mean Corpuscular Hgb 29.4 pg (27.0-32.0); Mean Corpuscular Volume 88.2 fL (80-94); Mean Platelet Vol. 9.9 fl (6.2-12.0); Monocyte# 0.23 X10^3/uL; Monocyte% 2.8 % (0-10); NRBC Flagged by Analyzer 0 % (0-5); Neutrophil # 6.37 X10^3/uL (2.7-7.7); Neutrophil % 77.5 % (47-70); POSITIVE MORPHOLOGY YES; Platelet Count 178 K/mm3 (150-450); RBC Distribution Width CV 14.4 % (11.6-14.6); RBC Distribution Width SD 46.4 fl (35.1-43.9); Red Blood Count 4.22 M/mm3 (4.6-6.2); White Blood Count 8.2 K/mm3 (4.4-11.0)
[2024-05-26 12:49] LABS: Differential Indicated SCAN CRITERIA MET
[2024-05-26 13:14] LABS: ALB/GLOB Ratio 0.7 RATIO (0.9-2.4); AST(SGOT) 52 U/L (15-37); Alanine Aminotransfer ALT/SGPT 80 U/L (16-61); Albumin, Serum 3.1 g/dL (3.2-5.0); Alkaline Phosphatase 115 U/L (45-117); Anion Gap 10 (5-15); BUN 23 mg/dL (7-18); BUN/Creat Ratio 19.8 RATIO (10-20); Chloride 101 mmol/L (98-107); Cholesterol 94 mg/dL (200); Creatinine, Serum 1.16 mg/dL (0.70-1.30); EST Glomerular Filtration Rate 66 mL/min (>60); Est Glom Filt Rate - Afr Amer 79 mL/min (>60); Globulin 4.4 g/dL (2.2-4.2); Glucose 110 mg/dL (74-106); High Density Lipoprotein 29 mg/dL; PSA,Total - Annual Screen 1.54 ng/mL (0.00-4.00); Protein, Total 7.5 g/dL (6.4-8.2); Sodium Level 134 mmol/L (136-145); Thyroid Stim Hormone (TSH) 0.98 uIU/mL (0.358-3.74); Triglycerides 128 mg/dL; Very Low Density Lipoprotein 26 mg/dL (5-40)
[2024-05-26 13:16] LABS: Differential Comment SCANNED
== END | disposition home or self-care (01) ==
LOC: VSLAB 09:32
PROVIDERS: PCP Nurse Practitioner Family; Visit Provider Nurse Practitioner Family
DX: Z12.5 Encounter for screening for malignant neoplasm of prostate (principal); E11.9 Type 2 diabetes mellitus without complications
CPT/HCPCS: 36415; 80053; 80061; 84153; 84443; 85025; G0103

== ENCOUNTER → 2024-05-30 | Outpatient (CLI) | payer MEDICARE, BC, SELFPAY ==
[2024-05-30 15:59] LABS: Color, Urine Yellow (Yellow); Glucose, Dipstick 1000 mg/dl (Normal); Ketone-Dipstick Negative (Negative); Leukocyte Esterase-Dipstick Negative /ul (Negative); Nitrite-Dipstick Negative (Negative); Occult Blood-Urine Negative /ul (Negative); Protein-Dipstick Negative (Negative); Urine Bilirubin Dipstick Negative (Negative); Urine Clarity Clear (Clear); Urine Urobilinogen Normal (Normal)
== END | disposition home or self-care (01) ==
LOC: LAB 15:10
PROVIDERS: PCP Nurse Practitioner Family; Referring Provider Nurse Practitioner Family; Visit Provider Nurse Practitioner Family
DX: R10.9 Unspecified abdominal pain (principal)
CPT/HCPCS: 81002; 87086

== ENCOUNTER 2024-06-02 02:13 | Emergency (ER) | payer MEDICARE, BC, SELFPAY ==
[2024-06-02 02:14] VITALS: BP 142/98; PULSE 82; RESP 16; TEMP 36.3; O2SAT 98; BMI 42.0
--- NOTE | 2024-06-02 02:31 | EDS_ITS ---
HPI History of Present Illness Chief Complaint: Back Informant: patient and spouse/S.O. Onset/Context/Timing Onset: Weeks (3) Context: Gradual Onset Associated Symptoms Associated Symptoms: Tingling (Some, in the left thigh only) and Radiation to Left Leg; Negative for Urinary Retention, Urinary Incontinence, Constipation or Fecal Incontinence Narrative Narrative: 74-year-old male has had gradual onset of back pain with sciatica symptoms into the left lower extremity for the past 3 weeks. Saw his PCP, was given tizanidine and tramadol and a Medrol Dosepak none of which have helped at all. Presents here in the ER at 2:30 AM because as he is having trouble dealing with the pain and sleeping. 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 Denies any weakness in the leg or symptoms down to the foot. No bowel or bladder dysfunction or saddle anesthesia. No recent injury. No history of cancer that he knows of. PFSH PFSH Medical History Sinusitis Morbid obesity COVID-19 Routine health maintenance Colon cancer screening Mitral valve regurgitation Heart murmur GERD (gastroesophageal reflux disease) Anemia BPH (benign prostatic hyperplasia) Obstructive sleep apnea Tricuspid valve regurgitation Kidney stones High cholesterol Hypertension Gout Diabetes Back problem Seasonal allergies Alcohol abuse Home Medications ?Medication ?Instructions ?Recorded ?Last Taken ?Type cinnamon bark 500 mg capsule 500 mg PO DAILY 12/17/18 Unknown History (Cinnamon) blood-glucose meter (FreeStyle #1 ea 09/10/20 Unknown Rx Lite Meter kit) lancets 28 gauge (FreeStyle #200 ea 09/10/20 Unknown Rx Lancets) insulin needles (disposable) 30 X ##1 12/24/20 Unknown History 3/4 Insulin needles #200 ea 12/25/20 Unknown Rx insulin glargine 100 unit/mL (3 50 unit (0.5 mL) subcut QPM 3 08/11/22 Unknown Rx mL) subcutaneous pen (Lantus months #45 mL Solostar U-100 Insulin) pen needle, diabetic 32 gauge x #200 ea 10/10/22 Unknown Rx 1/4 (BD Ultra-Fine Micro Pen Needle) esomeprazole magnesium 40 mg 40 mg PO DAILY #90 caps 11/25/22 Unknown Rx capsule,delayed release allopurinol 100 mg tablet 100 mg PO DAILY #90 tabs 01/26/23 Unknown Rx simvastatin 20 mg tablet 20 mg PO QHS #90 tabs 01/28/23 Unknown Rx blood sugar diagnostic (FreeStyle #200 ea 03/16/23 Unknown Rx Lite Strips) valsartan 320 mg tablet See Rx Instructions .Route 10/16/23 Unknown Rx .COMPLEX #90 tabs aspirin 81 mg capsule 81 mg PO DAILY 05/22/24 Unknown History dapagliflozin propanediol 10 mg 10 mg PO DAILY 05/22/24 Unknown History tablet (Farxiga) hydrochlorothiazide 25 mg tablet 12.5 mg PO QAM 05/22/24 Unknown History sitagliptin phosphate 100 mg 100 mg PO DAILY 05/22/24 Unknown History tablet (Januvia) oxycodone-acetaminophen 5 mg-325 1 tab PO Q6H PRN PRN pain 5 days 06/02/24 Unknown Rx mg tablet #20 TABLETS tirzepatide 10 mg/0.5 mL 10 mg subcut QWEEK 06/02/24 Unknown History subcutaneous pen injector ([place]) tizanidine 2 mg tablet 2 mg PO Q8H PRN PRN muscle spasm 06/02/24 Unknown History Allergy/AdvReac Type Severity Reaction Status Date / Time No Known Allergies Allergy Verified 06/02/24 02:15 Family History Father Arthritis Myocardial infarction Hypertension Social History Smoking Status: Never smoker Tobacco: How many years used: 5 how long ago did patient quit smoking: Approx 20 yrs ago (1998) alcohol intake: former year quit: 2018 substance use type: does not use what type of physical activity do you participate in: bicycling frequency: daily ROS ROS ED Constitutional Constitutional ED: Denies chills or fever(s) Gastrointestinal Gastrointestinal: Denies abdominal pain, constipation, fecal incontinence, nausea or vomiting Genitourinary Genitourinary ED: Reports other Details: no urinary retention ; Denies abdominal discomfort or urinary incontinence Musculoskeletal Musculoskeletal: Reports as per HPI and back pain; Denies neck pain Integumentary Denies rash or wounds Neurologic Neurologic: Reports paresthesias LLE; Denies headache(s) or weakness EXAM Physical Exam Const Vital Signs: 06/02/24 02:14 06/02/24 03:17 Temperature 97.4 F L 97.8 F Temperature Source Temporal Pulse Rate 82 80 Respiratory Rate 16 16 Blood Pressure 142/98 H 140/80 H Blood Pressure Mean 112 100 Pulse Ox 98 97 Oxygen Delivery Method Room Air Positive well nourished and well developed General Appearance ED: well developed and NAD HEENT Negative for trauma or tenderness Eyes PERRL and EOMs intact bilaterally Neck full ROM and supple GI normal to inspection, nondistended, normoactive bowel sounds, soft to palpation and non-tender Back/Spine normal to inspection Lumbar Spine / Lower Back: ROM limited, paraspinal muscle tenderness and straight leg raise positive - left at 40 degrees (Ipsilateral positive only, contralateral/cross straight leg raise is negative; ipsilateral SLR reproduces some radicular symptoms down to the foot temporarily.); Negative for lumbar spinal tenderness Extremity normal to inspection, full ROM and no pedal edema Neuro oriented x3, no sensory deficits noted and gait normal Sensorium / Orientation: alert Motor Exam: strength 5/5 throughout and clonus absent Deep Tendon Reflexes: Rt Patellar (L4): 2+, Lt Patellar (L4): 2+, Rt Ankle (S1): 2+ and Lt Ankle (S1): 2+ Deep Tendon Reflexes Back: Rt Patellar (L4): 2+, Lt Patellar (L4): 2+, Rt Ankle (S1): 2+ and Lt Ankle (S1): 2+ Plantar Reflex: Downgoing: bilateral Psych mental status grossly normal and thought process normal Skin no rashes or lesions noted and no wounds MDM MDM MDM Narrative Medical decision making narrative: Given the patient's age, screened for lytic lesions in the spine with a lumbar x-ray series. 3 views of my interpretation are negative for lytic lesions, he does appear to have some chronic degenerative changes but there are no old x- rays available for comparison. Aortic calcifications noted, I see no evidence of any aneurysmal aorta. Consistent with sciatica. He does not have cauda equina symptoms. His symptoms were treated here and he was given a prescription for oxycodone and advised not to use it with tramadol, advised to follow-up with his doctor after the holiday. Radiography Diagnostic Testing: Clinical Impression(s) from Imaging Studies Lumbar Spine X-Ray 06/02/24 02:47 IMPRESSION: No evidence of lumbar spinal fracture or spondylolisthesis. Mild degenerative change throughout. Electronically Signed: Dann Edwards MD at 3:26 EDT , Discharge Plan Triage Chief Complaint: Back ED Provider: Rogelio Ding Dx/Rx/DC Orders Clinical Impression: Acute left-sided low back pain with sciatica Instructions: ED Sciatica Prescriptions: New oxycodone-acetaminophen 5-325 mg tablet 1 tab PO Q6H PRN PRN (Reason: pain) 5 Days Qty: 20 0RF Continued cinnamon bark [Cinnamon] 500 mg capsule 500 mg PO DAILY (DME) blood-glucose meter [FreeStyle Lite Meter] Kit See Rx Instructions .ROUTE .MEDSUPPLY Qty: 1 0RF Rx Instructions: As directed, check blood glucose daily for type 2 DM (DME) lancets [FreeStyle Lancets] 28 gauge misc See Rx Instructions .ROUTE .MEDSUPPLY Qty: 200 3RF Rx Instructions: check blood glucose 3x daily for type 2 DM (DME) insulin needles (disposable) 30 X 3/4 needle See Rx Instructions .ROUTE .MEDSUPPLY Qty: 1 Rx Instructions: As directed Lantus Solostar U-100 Insulin 100 unit/mL (3 mL) insulin pen 50 unit SC QPM 90 Days Qty: 45 3RF tizanidine 2 mg tablet 2 mg PO Q8H PRN PRN (Reason: muscle spasm) Mounjaro 10 mg/0.5 mL pen injector 10 mg subcut QWEEK Januvia 100 mg tablet 100 mg PO DAILY dapagliflozin propanediol [Farxiga] 10 mg tablet 10 mg PO DAILY aspirin 81 mg capsule 81 mg PO DAILY hydrochlorothiazide 25 mg tablet 12.5 mg PO QAM (DME) Insulin needles See Rx Instructions .Route .MEDSUPPLY Qty: 200 3RF Rx Instructions: TID, As directed (DME) pen needle, diabetic [BD Ultra-Fine Micro Pen Needle] 32 gauge x 1/4 needle See Rx Instructions .ROUTE .MEDSUPPLY Qty: 200 3RF Rx Instructions: TID, As directed esomeprazole magnesium 40 mg capsule,delayed release(DR/EC) 40 mg PO DAILY Qty: 90 3RF allopurinol 100 mg tablet 100 mg PO DAILY Qty: 90 3RF simvastatin 20 mg tablet 20 mg PO QHS Qty: 90 3RF (DME) FreeStyle Lite Strips Strip See Rx Instructions .ROUTE .MEDSUPPLY Qty: 200 3RF Rx Instructions: check blood glucose 3x daily for type 2 DM valsartan 320 mg tablet See Rx Instructions .ROUTE .COMPLEX Qty: 90 0RF Dose Instruction: TAKE 1 TABLET DAILY Rx Instructions: TAKE 1 TABLET DAILY Discontinued tramadol 50 mg tablet 50 mg PO BID PRN PRN (Reason: pain) Primary Care Provider: Juan Peñaloza Referrals: Juan Peñaloza, HEAD BOOKKEEPER-C [Primary Care Provider] - As soon as possible Print Language: Zimbabwean Disposition Disposition: Home, Self Care Discharge Date/Time: 06/02/24 03:18
[2024-06-02] MEDS: Ondansetron ODT 4 MG Tablet 8 MG PO (02:40)
[2024-06-02] MEDS: Morphine 4 MG/ML Syringe IM (02:40)
--- NOTE | 2024-06-02 02:47 | RAD_ITS ---
INDICATION: pain EXAMINATION/TECHNIQUE: X-RAY - XR Spine Lumbar 2 or 3 Views COMPARISON: Prior study dated: CT from 05/24/2018 FINDINGS: VERTEBRAE: Preserved vertebral body height. No fracture. No spondylolisthesis. Preservation of the normal lumbar lordosis. DISCS: Disc spaces are maintained. Small endplate osteophytes throughout. Diffuse facet arthropathy. Vacuum disc phenomenon at L5-S1. INCLUDED ABDOMEN: Included bowel gas pattern is non-obstructive. RAD/Lumbar Spine 2 or 3 Views IMPRESSION: No evidence of lumbar spinal fracture or spondylolisthesis. Mild degenerative change throughout. Electronically Signed: Dann Edwards MD at 3:26 EDT ,
[2024-06-02] MEDS: oxyCODONE 5 MG Tablet PO (03:12)
[2024-06-02 03:17] VITALS: BP 140/80; PULSE 80; RESP 16; TEMP 36.6; O2SAT 97
== END 2024-06-02 03:18 | disposition home or self-care (01) ==
LOC: ED 02:40
PROVIDERS: Emergency Provider Emergency Medicine; PCP Nurse Practitioner Family; Visit Provider Emergency Medicine
DX: M54.40 Lumbago with sciatica, unspecified side (principal); E11.9 Type 2 diabetes mellitus without complications; E78.00 Pure hypercholesterolemia, unspecified; I70.0 Atherosclerosis of aorta; I10 Essential (primary) hypertension; Z87.891 Personal history of nicotine dependence; K21.9 Gastro-esophageal reflux disease without esophagitis; Z79.85 Long-term (current) use of injectable non-insulin antidiabetic drugs; R20.2 Paresthesia of skin
CPT/HCPCS: 72100; 96372; 99283

== ENCOUNTER 2024-06-07 10:18 | Emergency (ER) | payer MEDICARE, BC, SELFPAY ==
[2024-06-07 10:18] VITALS: BP 164/76; PULSE 81; RESP 14; TEMP 36.8; O2SAT 98; BMI 41.4
--- NOTE | 2024-06-07 12:43 | EDS_ITS ---
HPI History of Present Illness Chief Complaint: Back Narrative Narrative: 74-year-old male presenting with left-sided back pain. Patient was previously seen by his PCP who put him on muscle relaxers and a Medrol Dosepak. Patient states that this did not help. He was seen in the ER for 5 days ago and had x- rays done which were negative. He was given oxycodone for pain but states he started to get itchy from it. He also states that he started to have some constipation. He does take a stool softener and is able to have a bowel movement. Denies any loss of bladder control. No saddle anesthesia. Denies any direct trauma. Patient with no history of back surgeries in the past. PFSH PFSH Medical History Sinusitis Morbid obesity COVID-19 Routine health maintenance Colon cancer screening Mitral valve regurgitation Heart murmur GERD (gastroesophageal reflux disease) Anemia BPH (benign prostatic hyperplasia) Obstructive sleep apnea Tricuspid valve regurgitation Kidney stones High cholesterol Hypertension Gout Diabetes Back problem Seasonal allergies Alcohol abuse Home Medications ?Medication ?Instructions ?Recorded ?Last Taken ?Type cinnamon bark 500 mg capsule 500 mg PO DAILY 12/17/18 Unknown History (Cinnamon) blood-glucose meter (FreeStyle #1 ea 09/10/20 Unknown Rx Lite Meter kit) lancets 28 gauge (FreeStyle #200 ea 09/10/20 Unknown Rx Lancets) insulin needles (disposable) 30 X ##1 12/24/20 Unknown History 3/4 Insulin needles #200 ea 12/25/20 Unknown Rx insulin glargine 100 unit/mL (3 50 unit (0.5 mL) subcut QPM 3 08/11/22 Unknown Rx mL) subcutaneous pen (Lantus months #45 mL Solostar U-100 Insulin) pen needle, diabetic 32 gauge x #200 ea 10/10/22 Unknown Rx 1/4 (BD Ultra-Fine Micro Pen Needle) esomeprazole magnesium 40 mg 40 mg PO DAILY #90 caps 11/25/22 Unknown Rx capsule,delayed release allopurinol 100 mg tablet 100 mg PO DAILY #90 tabs 01/26/23 Unknown Rx simvastatin 20 mg tablet 20 mg PO QHS #90 tabs 01/28/23 Unknown Rx blood sugar diagnostic (FreeStyle #200 ea 03/16/23 Unknown Rx Lite Strips) valsartan 320 mg tablet See Rx Instructions .Route 10/16/23 Unknown Rx .COMPLEX #90 tabs aspirin 81 mg capsule 81 mg PO DAILY 05/22/24 Unknown History dapagliflozin propanediol 10 mg 10 mg PO DAILY 05/22/24 Unknown History tablet (Farxiga) hydrochlorothiazide 25 mg tablet 12.5 mg PO QAM 05/22/24 Unknown History sitagliptin phosphate 100 mg 100 mg PO DAILY 05/22/24 Unknown History tablet (Januvia) oxycodone-acetaminophen 5 mg-325 1 tab PO Q6H PRN PRN pain 5 days 06/02/24 Unknown Rx mg tablet #20 TABLETS tirzepatide 10 mg/0.5 mL 10 mg subcut QWEEK 06/02/24 Unknown History subcutaneous pen injector (Angelique) tizanidine 2 mg tablet 2 mg PO Q8H PRN PRN muscle spasm 06/02/24 Unknown History hydrocodone-acetaminophen 5-325mg 1 tab PO Q6H PRN PRN Pain 3 days 06/07/24 Unknown Rx 5mg-325mg #12 TABLETS Allergy/AdvReac Type Severity Reaction Status Date / Time No Known Allergies Allergy Verified 06/02/24 02:15 Family History Father Arthritis Myocardial infarction Hypertension Social History Smoking Status: Never smoker Tobacco: How many years used: 5 how long ago did patient quit smoking: Approx 20 yrs ago (1998) alcohol intake: former year quit: 2018 substance use type: does not use what type of physical activity do you participate in: bicycling frequency: daily ROS ROS ED Constitutional Constitutional ED: Denies chills, fever(s) or sweats Eyes Eyes: Denies blurry vision or change in vision ENT ENT ED: Denies ear pain or sore throat Cardiovascular Cardiovascular: Denies chest pain, palpitations or racing heartbeat Respiratory/Chest Respiratory/Chest: Denies cough, dyspnea or sputum Gastrointestinal Gastrointestinal: Denies abdominal pain, constipation, diarrhea, nausea or vomiting Genitourinary Genitourinary ED: Denies dysuria, hematuria or urinary frequency Musculoskeletal Musculoskeletal: Reports back pain; Denies arthralgias, myalgias or neck pain Integumentary Denies abscess, Abrasions or rash Neurologic Neurologic: Denies headache(s), paresthesias or weakness Psychiatric Psychiatric: Denies anxiety, depression, suicidal ideation or suicidal thoughts Endocrine Endocrinology: Denies polydipsia or polyuria EXAM Physical Exam Const Vital Signs: 06/07/24 10:18 Temperature 98.3 F Temperature Source Temporal Pulse Rate 81 Respiratory Rate 14 Blood Pressure 164/76 H Blood Pressure Mean 105 Pulse Ox 98 Oxygen Delivery Method Room Air Positive well nourished General Appearance ED: NAD HEENT Reports moist mucous membranes Eyes PERRL and EOMs intact bilaterally Neck no lymphadenopathy Resp normal respiratory effort Cardio regular rate and regular rhythm Back/Spine Back/Spine Narrative: Left-sided paraspinal musculature tenderness. No midline spinal deformity or step-offs. No rashes. Extremity normal to inspection Neuro oriented x3 and no sensory deficits noted Sensorium / Orientation: alert Motor Exam: strength 5/5 throughout Psych mental status grossly normal MDM MDM MDM Narrative Medical decision making narrative: Patient presenting with ongoing back pain. He tried oxycodone with some relief of the pain although he started to get itching and constipated. He is on a stool softener. No red flag signs or symptoms. He is already had imaging done in the last 5 days. We discussed starting him on hydrocodone to see if this would help his abdominal pain. Recommended that he continue to do his stool softeners and laxatives. He has a follow-up appointment upcoming. I recommend he keep this appointment. He also has physical therapy ordered. I recommended that he keep his physical therapy appointment. Impression: 1. Lumbar strain Discharge Plan Triage Chief Complaint: Back ED Provider: Brandon Melendez Dx/Rx/DC Orders Instructions: ED Back Sprain/Strain Prescriptions: New hydrocodone-acetaminophen 5-325 mg tablet 1 tab PO Q6H PRN PRN (Reason: Pain) 3 Days Qty: 12 0RF No Action cinnamon bark [Cinnamon] 500 mg capsule 500 mg PO DAILY (DME) blood-glucose meter [FreeStyle Lite Meter] Kit See Rx Instructions .ROUTE .MEDSUPPLY Qty: 1 0RF Rx Instructions: As directed, check blood glucose daily for type 2 DM (DME) lancets [FreeStyle Lancets] 28 gauge misc See Rx Instructions .ROUTE .MEDSUPPLY Qty: 200 3RF Rx Instructions: check blood glucose 3x daily for type 2 DM (DME) insulin needles (disposable) 30 X 3/4 needle See Rx Instructions .ROUTE .MEDSUPPLY Qty: 1 Rx Instructions: As directed Lantus Solostar U-100 Insulin 100 unit/mL (3 mL) insulin pen 50 unit SC QPM 90 Days Qty: 45 3RF tizanidine 2 mg tablet 2 mg PO Q8H PRN PRN (Reason: muscle spasm) Mounjaro 10 mg/0.5 mL pen injector 10 mg subcut QWEEK oxycodone-acetaminophen 5-325 mg tablet 1 tab PO Q6H PRN PRN (Reason: pain) 5 Days Qty: 20 0RF Januvia 100 mg tablet 100 mg PO DAILY dapagliflozin propanediol [Farxiga] 10 mg tablet 10 mg PO DAILY aspirin 81 mg capsule 81 mg PO DAILY hydrochlorothiazide 25 mg tablet 12.5 mg PO QAM (DME) Insulin needles See Rx Instructions .Route .MEDSUPPLY Qty: 200 3RF Rx Instructions: TID, As directed (DME) pen needle, diabetic [BD Ultra-Fine Micro Pen Needle] 32 gauge x 1/4 needle See Rx Instructions .ROUTE .MEDSUPPLY Qty: 200 3RF Rx Instructions: TID, As directed esomeprazole magnesium 40 mg capsule,delayed release(DR/EC) 40 mg PO DAILY Qty: 90 3RF allopurinol 100 mg tablet 100 mg PO DAILY Qty: 90 3RF simvastatin 20 mg tablet 20 mg PO QHS Qty: 90 3RF (DME) FreeStyle Lite Strips Strip See Rx Instructions .ROUTE .MEDSUPPLY Qty: 200 3RF Rx Instructions: check blood glucose 3x daily for type 2 DM valsartan 320 mg tablet See Rx Instructions .ROUTE .COMPLEX Qty: 90 0RF Dose Instruction: TAKE 1 TABLET DAILY Rx Instructions: TAKE 1 TABLET DAILY Primary Care Provider: Juan Peñaloza Referrals: Juan Peñaloza, [facility] [Primary Care Provider] - Print Language: Ukrainian Disposition Disposition: Home, Self Care
[2024-06-07] MEDS: HYDROcodone Bitartrate/Apap 5/325 Tablet PO (12:52)
== END 2024-06-07 13:02 | disposition home or self-care (01) ==
PROVIDERS: Emergency Provider Student in an Organized Health Care Education/Training Program; PCP Nurse Practitioner Family; Visit Provider Student in an Organized Health Care Education/Training Program
DX: S39.012A Strain of muscle, fascia and tendon of lower back, initial encounter (principal); E11.9 Type 2 diabetes mellitus without complications; I10 Essential (primary) hypertension; Z87.891 Personal history of nicotine dependence; E78.00 Pure hypercholesterolemia, unspecified; K21.9 Gastro-esophageal reflux disease without esophagitis; Z79.85 Long-term (current) use of injectable non-insulin antidiabetic drugs; K59.00 Constipation, unspecified; X58.XXXA Exposure to other specified factors, initial encounter
CPT/HCPCS: 99282

== ENCOUNTER 2024-06-09 03:10 | Observation (INO) | payer MEDICARE, BC, SELFPAY ==
[2024-06-09] VITALS (8 sets, daily range): BP systolic 130–168; BP diastolic 72–100; PULSE 70–88; RESP 18–20; TEMP 36.5–37; O2SAT 95–99; BMI 41.7; BMI 41.3
[2024-06-09 03:38] LABS: Absolute Lymphocyte Count 0.95 X10^3/uL (0.83-4.51); Absolute Neutrophil Count 8.5 X10^3/uL (2.0-7.7); Basophil# 0.03 X10^3/uL; Basophil% 0.3 % (0-1); Eosinophil# 0.05 X10^3/uL; Eosinophils% 0.5 % (0-5); Hematocrit 34.8 % (40-54); Hemoglobin 11.7 g/dL (13.0-16.5); Lymphocyte # 0.95 X10^3/ul (0.83-4.51); Lymphocyte % 9.5 % (19-41); Mean Corp Hgb Conc 33.6 g/dL (32-36); Mean Corpuscular Hgb 28.5 pg (27.0-32.0); Mean Corpuscular Volume 84.9 fL (80-94); Mean Platelet Vol. 8.6 fl (6.2-12.0); Monocyte# 0.39 X10^3/uL; Monocyte% 3.9 % (0-10); NRBC Flagged by Analyzer 0 % (0-5); Neutrophil # 8.51 X10^3/uL (2.7-7.7); Neutrophil % 85.1 % (47-70); Platelet Count 190 K/mm3 (150-450); RBC Distribution Width CV 14.1 % (11.6-14.6); RBC Distribution Width SD 43.3 fl (35.1-43.9)
[2024-06-09 03:49] LABS: International Normalized Ratio 1.2
[2024-06-09 03:50] LABS: Partial Thromboplast Time 35.4 Seconds (24.1-36.2)
[2024-06-09 03:54] LABS: ALB/GLOB Ratio 0.5 RATIO (0.9-2.4); AST(SGOT) 46 U/L (15-37); Alanine Aminotransfer ALT/SGPT 60 U/L (16-61); Albumin, Serum 2.8 g/dL (3.2-5.0); Alkaline Phosphatase 121 U/L (45-117); Anion Gap 10 (5-15); BUN 25 mg/dL (7-18); BUN/Creat Ratio 24.5 RATIO (10-20); Calcium,Total 9.2 mg/dL (8.5-10.1); Chloride 86 mmol/L (98-107); Creatinine, Serum 1.02 mg/dL (0.70-1.30); EST Glomerular Filtration Rate 76 mL/min (>60); Est Glom Filt Rate - Afr Amer 92 mL/min (>60); Estimated Creatinine Clearance 88.13 ml/min; Globulin 5.2 g/dL (2.2-4.2); Glucose 140 mg/dL (74-106); Sodium Level 121 mmol/L (136-145)
--- NOTE | 2024-06-09 04:00 | CT_ITS ---
EXAM: CT ABDOMEN AND PELVIS WITH INTRAVENOUS CONTRAST CLINICAL INDICATION: lower abd pain TECHNIQUE: Helically acquired images were obtained of the abdomen and pelvis with intravenous contrast. This CT exam was performed using one or more of the following dose reduction techniques: automated exposure control, adjustment of the mA and/or kV according to patient size, and/or use of iterative reconstruction technique. CONTRAST: IV 100mL Isovue-370 RADIATION DOSE: CTDIvol = 22.05 mGy, DLP = 1237.56 mGy-cm COMPARISON: No relevant prior studies available. FINDINGS: LOWER THORAX: Unremarkable. Lung bases are clear. No cardiomegaly. No significant pericardial effusion. ABDOMEN: LIVER: Hepatomegaly. GALLBLADDER AND BILE DUCTS: Unremarkable. No calcified gallstones. No gallbladder distention or wall edema. No intra- or extrahepatic biliary ductal dilation. PANCREAS: No inflammation around the pancreas. No focal cystic or solid mass. SPLEEN: Unremarkable. Normal size without focal cystic or solid mass. ADRENALS: Unremarkable. No nodules. KIDNEYS AND URETERS: Bilateral benign renal cysts. No follow-up imaging is recommended per consensus recommendations based on imaging criteria. Normal renal size and position. No hydronephrosis. STOMACH AND BOWEL: No bowel obstruction or inflammation. Mild diverticular disease of the colon but no diverticulitis. PELVIS: APPENDIX: The appendix is normal. BLADDER: Unremarkable. REPRODUCTIVE: Unremarkable as visualized. No mass. ABDOMEN and PELVIS: INTRAPERITONEAL SPACE: Unremarkable. No ascites or other fluid collection. No free air. BONES/JOINTS: Unremarkable. No suspicious lytic or blastic abnormality. SOFT TISSUES: Diastases of the abdominal rectus muscles with a low ventral abdominal wall hernia best seen on sagittal image 110, containing loops of small bowel. No evidence of strangulation/obstruction. VASCULATURE: Unremarkable. Abdominal aorta is non-dilated. LYMPH NODES: Unremarkable. No enlarged lymph nodes. CT/Abdomen/Pelvis W IV Cont ONLY IMPRESSION: 1. No acute abnormalities identified in the abdomen/pelvis. 2. Diastases of the abdominal rectus muscles with a low ventral abdominal wall hernia containing loops of small bowel. No evidence of strangulation/obstruction. Electronically Signed: Herbie Mcallister MD at 4:35 EDT ,
--- NOTE | 2024-06-09 04:05 | EDS_ITS ---
HPI HPI - GI History of Present Illness Chief Complaint: GI Bleed Informant: patient Narrative Narrative: Patient is a 74 year old male with history of DM2, GERD, mitral valve regurg, hypertension, hyperlipidemia, alcohol use and recent issues with sciatica (prescribed Enderlin) presenting with lower abdominal pain and black stool. States he started having lower abdominal pain around 6 PM tonight. He notes his stools have been black. Has been taking Pepto-Bismol as well as MiraLAX medical magnesia because he is also been constipated. Denies any show any abdominal surgeries but notes that he has large umbilical hernia. Feels that he has been passing less gas has been having nausea. Denies any vomiting. Denies any fever, chest pain or difficulty breathing but feels short of breath from his abdominal pain. No other complaints or concerns reported at this time. PFSH PFSH Medical History Sinusitis Morbid obesity COVID-19 Routine health maintenance Colon cancer screening Mitral valve regurgitation Heart murmur GERD (gastroesophageal reflux disease) Anemia BPH (benign prostatic hyperplasia) Obstructive sleep apnea Tricuspid valve regurgitation Kidney stones High cholesterol Hypertension Gout Diabetes Back problem Seasonal allergies Alcohol abuse Home Medications ?Medication ?Instructions ?Recorded ?Last Taken ?Type cinnamon bark 500 mg capsule 500 mg PO DAILY 12/17/18 Unknown History (Cinnamon) blood-glucose meter (FreeStyle #1 ea 09/10/20 Unknown Rx Lite Meter kit) lancets 28 gauge (FreeStyle #200 ea 09/10/20 Unknown Rx Lancets) insulin needles (disposable) 30 X ##1 12/24/20 Unknown History 3/4 Insulin needles #200 ea 12/25/20 Unknown Rx insulin glargine 100 unit/mL (3 50 unit (0.5 mL) subcut QPM 3 08/11/22 Unknown Rx mL) subcutaneous pen (Lantus months #45 mL Solostar U-100 Insulin) pen needle, diabetic 32 gauge x #200 ea 10/10/22 Unknown Rx 1/4 (BD Ultra-Fine Micro Pen Needle) esomeprazole magnesium 40 mg 40 mg PO DAILY #90 caps 11/25/22 Unknown Rx capsule,delayed release allopurinol 100 mg tablet 100 mg PO DAILY #90 tabs 01/26/23 Unknown Rx simvastatin 20 mg tablet 20 mg PO QHS #90 tabs 01/28/23 Unknown Rx blood sugar diagnostic (FreeStyle #200 ea 03/16/23 Unknown Rx Lite Strips) valsartan 320 mg tablet See Rx Instructions .Route 10/16/23 Unknown Rx .COMPLEX #90 tabs aspirin 81 mg capsule 81 mg PO DAILY 05/22/24 Unknown History dapagliflozin propanediol 10 mg 10 mg PO DAILY 05/22/24 Unknown History tablet (Farxiga) hydrochlorothiazide 25 mg tablet 12.5 mg PO QAM 05/22/24 Unknown History sitagliptin phosphate 100 mg 100 mg PO DAILY 05/22/24 Unknown History tablet (Januvia) tirzepatide 10 mg/0.5 mL 10 mg subcut QWEEK 06/02/24 Unknown History subcutaneous pen injector (Dimitrisunjaro) hydrocodone-acetaminophen 5-325mg 1 tab PO Q6H PRN PRN Pain 3 days 06/07/24 Unk nown Rx 5mg-325mg #12 TABLETS meloxicam 15 mg tablet 15 mg PO DAILY PRN pain 06/09/24 Unknown History Allergy/AdvReac Type Severity Reaction Status Date / Time oxycodone Allergy Itching Verified 06/09/24 03:13 Family History Father Arthritis Myocardial infarction Hypertension Social History Smoking Status: Never smoker Tobacco: How many years used: 5 how long ago did patient quit smoking: Approx 20 yrs ago (1998) alcohol intake: former year quit: 2018 substance use type: does not use what type of physical activity do you participate in: bicycling frequency: daily ROS ROS ED Constitutional Constitutional ED: Denies chills or fever(s) Respiratory/Chest Respiratory/Chest: Denies cough Gastrointestinal Gastrointestinal: Reports abdominal pain, constipation, melena and nausea; Denies diarrhea or vomiting Genitourinary Genitourinary ED: Denies dysuria or urinary frequency Musculoskeletal Musculoskeletal: Reports other Details: recent left sciatica- improving ; Denies arthralgias or myalgias Integumentary Denies rash Neurologic Neurologic: Denies headache(s) or weakness Hematologic/Lymphatic Hematologic/Lymphatic: Denies easy bleeding or easy bruising EXAM Physical Exam Const Vital Signs: 06/09/24 03:11 06/09/24 03:15 Temperature 98.2 F Temperature Source Oral Pulse Rate 80 Respiratory Rate 18 Blood Pressure 130/100 H 168/84 H Blood Pressure Mean 110 112 Pulse Ox 99 Oxygen Delivery Method Room Air Positive well nourished and well developed General Appearance ED: well developed and NAD; Negative for pallor HEENT Reports moist mucous membranes Eyes General Eye ED: Negative for pale conjunctiva Neck supple Resp normal respiratory effort and clear to auscultation bilaterally Cardio regular rate and regular rhythm GI non-tender GI Narrative: Protuberant abdomen, no fluid wave appreciated. Large soft and reducible umbilical hernia present. Brown stool on rectal exam. No external hemorrhoids appreciated Auscultation: normoactive bowel sounds Palpation: soft; Negative for tender, guarding or rigid Back/Spine no CVA tenderness Extremity full ROM Extremity Narrative: Chronic appearing pretibial edema, slightly worse on the left Neuro moves all extremities Sensorium / Orientation: alert Motor Exam: Negative for general weakness Psych thought process normal Skin General Skin Exam: Negative for jaundice or pallor MDM MDM MDM Narrative Medical decision making narrative: Patient is evaluated for lower abdominal pain and the sensation of constipation. He recently was put on some pain medication which she feels like extremity to his constipation. He has tried [id number] medications including milk of magnesia and MiraLAX with no relief. He started having black stool which is a problem to the emergency room tonight. Patient is nontoxic-appearing on exam. He has a quite protuberant abdomen with a soft and reducible ventral hernia. Stool is brown and guaiac negative. I suspect it was discolored from the Pepto-Bismol. His hemoglobin is stable at 11.7 which is near his baseline. Does not have a leukocytosis. He is found to have a pretty significant hyponatremia with a sodium of 121. Patient denies any significant alcohol use and I question if this could be from dehydration, laxative abuse or possibly medication induced. Is given IV fluids in the emergency room. Is given Bentyl for his abdominal pain. Would like to defer opioids at this time. Will be admitted for further monitoring of his neurologic status and sodium replacement. He is agreeable with this as his is. Case discussed with main physician, Dr. Jaime. CT abdomen pelvis does not show any acute intra-abdominal pathology really does not show much stool burden either. Lab Data Attestation: I reviewed the patient's lab results. Labs: Laboratory Results - last 24 hr 06/09/24 03:20 WBC 10.0 RBC 4.10 L Hgb 11.7 L Hct 34.8 L MCV 84.9 MCH 28.5 MCHC 33.6 RDW Std Deviation 43.3 RDW Coeff of Lashon 14.1 Plt Count 190 MPV 8.6 Immature Gran % (Auto) 0.700 Neut % (Auto) 85.1 H Lymph % (Auto) 9.5 L Rowan % (Auto) 3.9 Eos % (Auto) 0.5 Baso % (Auto) 0.3 Absolute Neuts (auto) 8.5 H Absolute Lymphs (auto) 0.95 Nucleated RBC % 0 PT 15.0 H INR 1.2 APTT 35.4 Sodium 121 L Potassium 4.0 Chloride 86 L Carbon Dioxide 25.0 Anion Gap 10 BUN 25 H Creatinine 1.02 Estim Creat Clear Calc 88.13 Est GFR (MDRD) Af Amer 92 Est GFR (MDRD) Non-Af 76 BUN/Creatinine Ratio 24.5 H Glucose 140 H Calcium 9.2 Total Bilirubin 0.70 AST 46 H ALT 60 Alkaline Phosphatase 121 H Total Protein 8.0 Albumin 2.8 L Globulin 5.2 H Albumin/Globulin Ratio 0.5 L Radiography Diagnostic Testing: Clinical Impression(s) from Imaging Studies Abdomen/Pelvis CT 06/09/24 04:00 IMPRESSION: 1. No acute abnormalities identified in the abdomen/pelvis. 2. Diastases of the abdominal rectus muscles with a low ventral abdominal wall hernia containing loops of small bowel. No evidence of strangulation/obstruction. Electronically Signed: Herbie Mcallister MD at 4:35 EDT , Management Discussion w/another healthcare provider: Hospitalist Discharge Plan Triage Chief Complaint: GI Bleed ED Provider: Felicia Shaver Dx/Rx/DC Orders Clinical Impression: Acute hyponatremia, Abdominal pain, lower Primary Care Provider: Juan Peñaloza [facility] Disposition Disposition: Acute Care Hospital [facility]
[2024-06-09] MEDS: Ondansetron 4 MG/2 ML Vial IV (04:09)
[2024-06-09] MEDS: 0.9% Normal Saline (500mL Bag) 500 ML 999 ML IV (04:10)
--- NOTE | 2024-06-09 05:05 | HP.PCM.HOS_ITS ---
HPI - General General Date of Admission: 06/09/24 Date of Service: 06/09/24 Chief Complaint: Abdominal discomfort. HPI Narrative The patient is a 74 y/o M w/ PMHx: TREY, Gout, HTN, HLD, BPH, Chronic anemia, Morbid obesity, Former EtOH abuse, Diabetes mellitus type II who presents to the [facility] ED on 06/09/24 with ongoing abdominal discomfort with constipation and cramping prompting him to self administer MiraLAX, milk of magnesium as well as significant amounts of Pepto-Bismol with worsened abdominal cramping since 1800 with ongoing black appearing stools since start of his Pepto-Bismol intake prompting eventual ED evaluation. He notes he has been taking narcotics specifically [place] secondary to recent issues with sciatica which is prompted the constipation events. Patient has still been having left lower extremity discomfort and sciatic pain despite outpatient therapies which from discussion with patient and his significant included NSAIDs, muscle relaxants and narcotics. He states that initially he may have been on a Medrol Dosepak but this was not effective. He denies ever having been on gabapentin for the sciatic pain. He notes feeling significantly bloated with his current abdominal presentation. Workup in the ED includes T97.4, heart rate 82, BP 142/98, respiratory rate 16, 98% on room air, CBC with WBC 10, hemoglobin 0.7, MCV 84.9, platelet 190 with left shift, coags with PT 15 otherwise unremarkable, CMP with sodium 121, chloride 86, BUN/creatinine 25/1.02, GFR 76, glucose 140, AST/ALT 46/60, alk phos 121, CT abdomen and pelvis with no acute abnormalities in the abdomen/pelvis, diastases of the abdominal rectus muscles with low ventral abdominal wall hernia containing loops of small bowel with no evidence of strangulation or obstruction, stool guaiac negative. In the ED patient administered 500 cc normal saline as well as Zofran 4 mg IV x 1. PFSH Medical History Sinusitis Morbid obesity COVID-19 Routine health maintenance Colon cancer screening Mitral valve regurgitation Heart murmur GERD (gastroesophageal reflux disease) Anemia BPH (benign prostatic hyperplasia) Obstructive sleep apnea Tricuspid valve regurgitation Kidney stones High cholesterol Hypertension Gout Diabetes Back problem Seasonal allergies Alcohol abuse Home Medications ?Medication ?Instructions ?Recorded ?Last Taken ?Type cinnamon bark 500 mg capsule 500 mg PO DAILY 12/17/18 Unknown History (Cinnamon) blood-glucose meter (FreeStyle #1 ea 09/10/20 Unknown Rx Lite Meter kit) lancets 28 gauge (FreeStyle #200 ea 09/10/20 Unknown Rx Lancets) insulin needles (disposable) 30 X ##1 12/24/20 Unknown History 3/4 Insulin needles #200 ea 12/25/20 Unknown Rx insulin glargine 100 unit/mL (3 50 unit (0.5 mL) subcut QPM 3 08/11/22 Unknown Rx mL) subcutaneous pen (Lantus months #45 mL Solostar U-100 Insulin) pen needle, diabetic 32 gauge x #200 ea 10/10/22 Unknown Rx 1/4 (BD Ultra-Fine Micro Pen Needle) esomeprazole magnesium 40 mg 40 mg PO DAILY #90 caps 11/25/22 Unknown Rx capsule,delayed release allopurinol 100 mg tablet 100 mg PO DAILY #90 tabs 01/26/23 Unknown Rx simvastatin 20 mg tablet 20 mg PO QHS #90 tabs 01/28/23 Unknown Rx blood sugar diagnostic (FreeStyle #200 ea 03/16/23 Unknown Rx Lite Strips) valsartan 320 mg tablet See Rx Instructions .Route 10/16/23 Unknown Rx .COMPLEX #90 tabs aspirin 81 mg capsule 81 mg PO DAILY 05/22/24 Unknown History dapagliflozin propanediol 10 mg 10 mg PO DAILY 05/22/24 Unknown History tablet (Farxiga) hydrochlorothiazide 25 mg tablet 12.5 mg PO QAM 05/22/24 Unknown History sitagliptin phosphate 100 mg 100 mg PO DAILY 05/22/24 Unknown History tablet (Januvia) tirzepatide 10 mg/0.5 mL 10 mg subcut QWEEK 06/02/24 Unknown History subcutaneous pen injector (Mounjaro) hydrocodone-acetaminophen 5-325mg 1 tab PO Q6H PRN PRN Pain 3 days 06/07/24 Unknown Rx 5mg-325mg #12 TABLETS meloxicam 15 mg tablet 15 mg PO DAILY PRN pain 06/09/24 Unknown History Allergy/AdvReac Type Severity Reaction Status Date / Time oxycodone Allergy Itching Verified 06/09/24 03:13 Family History (Updated 06/09/24 @ 05:[address] Chioma Jaime MD) Father Arthritis Myocardial infarction Hypertension Mother , at age 48 during hernia repair secondary to anesthetic complications. No problems noted. Surgical History (Updated 06/09/24 @ 05:[address] Chioma Jaime MD) No history of previous surgery Social History (Updated 06/09/24 @ 05:[address] Chioma Jaime MD) household members: significant other Smoking Status: Never smoker Tobacco: How many years used: 5 how long ago did patient quit smoking: Quit 1998, smoked 1pk/week since until quit. alcohol intake: former year quit: 2018 details: Sober since 2018. substance use type: does not use what type of physical activity do you participate in: bicycling frequency: daily ROS ROS Narrative Admission Review of Systems: CONSTITUTIONAL: No weight loss, fever, chills, + weakness or fatigue. HEENT: Eyes: No visual loss, blurred vision, double vision or yellow sclerae. Ears, Nose, Throat: No hearing loss, sneezing, congestion, runny nose or sore throat. SKIN: No rash or itching, lesions, wounds. CARDIOVASCULAR: No chest pain, chest pressure or chest discomfort, palpitations, edema, orthopnea, syncopal events. RESPIRATORY: No shortness of breath, cough or sputum, wheezing, hemoptysis. GASTROINTESTINAL: + anorexia, abdominal cramping, abdominal bloating, black appearing stools. No nausea, vomiting, BRBPR. GENITOURINARY: No dysuria, frequency, urgency or retention. NEUROLOGICAL: + LLE radiculopathy/sciatic pain. No headache, dizziness, syncope, paralysis, ataxia, numbness or tingling in the extremities, focal weakness, change in bowel or bladder control, seizure. MUSCULOSKELETAL: + muscle, back pain, joint pain or stiffness. HEMATOLOGIC: + Chronic anemia. Denies easy bleeding/bruising. LYMPHATICS: No enlarged nodes. No history of splenectomy. PSYCHIATRIC: No history of depression or anxiety. ENDOCRINOLOGIC: No reports of sweating, cold or heat intolerance. No polyuria or polydipsia. ALLERGIES: + History of allergic rhinitis. Vital Signs Vital Signs Vital Signs: 06/09/24 03:11 06/09/24 03:15 Temperature 98.2 F Temperature Source Oral Pulse Rate 80 Respiratory Rate 18 Blood Pressure 130/100 H 168/84 H Blood Pressure Mean 110 112 Pulse Ox 99 Oxygen Delivery Method Room Air Weight Weight: 291 lb Body Mass Index (BMI) 41.7 Physical Exam Narrative Physical Examination: General: Awake, alert, oriented x 3 and cooperative, seated upright in the ED bed, uncomfortable appearing, no acute distress. Skin: Normal color, normal turgor, no icterus, no cyanosis. HEENT: AT/NC, EOMI, PERRLA, dry MM, no carotid bruits or JVD noted; however, habitus with thickened neck makes evaluation difficult. Lungs: Diminished, greater bases, proper effort, no rales, ronchi or wheezing. Heart: Regular rate and rhythm; no gallop, rub audible. Abdomen: Soft, morbidly obese, mild generalized discomfort to palpation, no rebound or guarding, notable distention with tympany, hypoactive bowel sounds, difficult to assess HSM given habitus. Extremities: No cyanosis, no clubbing, bilateral lower extremity pedal to mid leon 1+ pitting edema noted to be chronic. Neurological: Patient awake, alert, oriented as noted, cognitive function intact; pupils equally reactive to light and accommodation, cranial nerves grossly normal, moving all 4 extremities, no focal deficits, strength moderately globally decreased secondary to acute complaints. Psychiatric: Affect appears fatigued, uncomfortable appearing, no acute evidence of depressive or anxiety feelings. Results Lab / Micro Data 06/09/24 03:20 06/09/24 03:20 Labs: Laboratory Results - last 24 hr 06/09/24 03:20: WBC 10.0, RBC 4.10 L, Hgb 11.7 L, Hct 34.8 L, MCV 84.9, MCH 28.5, MCHC 33.6, RDW Std Deviation 43.3, RDW Coeff of [place] 14.1, Plt Count 190, MPV 8.6, Immature Gran % (Auto) 0.700, Neut % (Auto) 85.1 H, Lymph % (Auto) 9.5 L, [place] % (Auto) 3.9, Eos % (Auto) 0.5, Baso % (Auto) 0.3, Absolute Neuts (auto) 8.5 H, Absolute Lymphs (auto) 0.95, Nucleated RBC % 0, PT 15.0 H, INR 1.2, APTT 35.4, Sodium 121 L, Potassium 4.0, Chloride 86 L, Carbon Dioxide 25.0, Anion Gap 10, BUN 25 H, Creatinine 1.02, Estim Creat Clear Calc 88.13, Est GFR (MDRD) Af Amer 92, Est GFR (MDRD) Non-Af 76, BUN/Creatinine Ratio 24.5 H, Glucose 140 H, Calcium 9.2, Total Bilirubin 0.70, AST 46 H, ALT 60, Alkaline Phosphatase 121 H, Total Protein 8.0, Albumin 2.8 L, Globulin 5.2 H, Albumin/Globulin Ratio 0.5 L Micro: Microbiology 06/09/24 03:58 Stool Stool Occult Blood (RADHA) - Final Imaging Radiology Impression Abdomen/Pelvis CT 06/09/24 04:00 IMPRESSION: 1. No acute abnormalities identified in the abdomen/pelvis. 2. Diastases of the abdominal rectus muscles with a low ventral abdominal wall hernia containing loops of small bowel. No evidence of strangulation/obstruction. Electronically Signed: Herbie Mcallister MD at 4:35 EDT , Assessment & Plan Assessment/Plan (1) Abdominal pain: PLAN: Plan The patient is a 74 y/o M w/ PMHx: TREY, Gout, HTN, HLD, BPH, Chronic anemia, Morbid obesity, Former EtOH abuse, Diabetes mellitus type II who presents to the [facility] ED on 06/09/24 with ongoing abdominal discomfort with constipation and cramping prompting him to self administer MiraLAX, milk of magnesium as well as significant amounts of Pepto-Bismol with worsened abdominal cramping since 1800 with ongoing black appearing stools since start of his Pepto-Bismol intake prompting eventual ED evaluation. #1. Acute constipation and abdominal discomfort likely secondary to significant bowel regimen in addition to narcotic regimen: If able will temporally hold narcotic therapies, given sciatic pain we will add gabapentin and if necessary may consider adding steroid therapy in addition, hold aggressive bowel regimen and monitor for I's and O's with readdition of agents as appropriate, given discomfort will allow clears at this time and advance diet as tolerated. #2. Acute on chronic hyponatremia, potentially related with #1 and GI losses: Admission sodium 121, previous baseline most recently noted 05/26/2024 sodium 134, will continue to hydrate and repeat CMP in AM. #3. Persistent left lower extremity ongoing radiculopathy, sciatic pain: Will hold narcotics as noted, hold muscle relaxants, will start on prednisone therapy as well as low-dose 3 times daily gabapentin regimen. #4. Chronic normocytic anemia: Guaiac pending upon evaluation negative, stools likely dark secondary to Pepto-Bismol. Admission hemoglobin 11.7, previous baseline hemoglobin 05/26/24 hemoglobin 12.4 with baseline primarily 12-13 range, will continue to monitor. #5. Chronic Kidney Disease Stage II per GFR trending: Admission BUN/Cr 25/1.02, GFR 76, baseline renal function primarily 1.0-1.2, repeat BMP in AM. #6. Hypertension: Continue home regimen including valsartan with hold parameters as needed, PRN hydralazine. Holding HCZT given hyponatremia and possible GI losses with #1. #7. Hyperlipidemia: We will continue patient on statin therapy. #8. Morbid Obesity: Weight loss and lifestyle changes encouraged. #9. Diabetes mellitus type II: Hold oral home regimen, continue home insulin regimen, allow clears with ADAT once abdominal discomfort improving, will maintain every 6 hours accu checks w/ ISS while on clears. #10. Former EtOH Abuse: Patient with sobriety since 2017, encourage continued ongoing sobriety. #11. Gout: We will continue patient home allopurinol regimen. #12. GERD: Continue home PPI. #13. TREY: CPAP nightly. #14. DVT prophylaxis: SCDs. #15. CODE status: Patient does not have healthcare power of bench examiner or living will in place but notes his significant Marisela who is present would be his decision-maker if necessary. Discussed CODE status at length including difference between FULL code, DNR-CCA and DNR-CC status. Following discussions about the differences in these status, requested Full Code status. Charges/Coding Visit Charges Inpatient E&M: 27198 Init Hosp L3
[2024-06-09] MEDS: Dicyclomine 10 MG Capsule 20 MG PO ×4 (05:25→22:38)
[2024-06-09] MEDS: 0.9% Saline Lock 10 ML Syringe IV (06:51)
[2024-06-09] MEDS: 0.9% Normal Saline (1000mL) 1,000 ML 100 ML IV (06:53)
[2024-06-09] MEDS: predniSONE 20 MG Tablet 40 MG PO (06:54)
[2024-06-09] MEDS: Gabapentin 100 MG Capsule PO ×3 (06:54→16:50)
[2024-06-09 07:15] LABS: Bedside Glucose 136 mg/dL (74-106)
[2024-06-09] MEDS: Pantoprazole Sodium 40 MG Tablet PO (08:10)
[2024-06-09] MEDS: Losartan Potassium 100 MG Tablet PO (08:10)
[2024-06-09] MEDS: Allopurinol 100 MG Tablet PO (08:10)
--- NOTE | 2024-06-09 08:54 | PCM.PN.HOSP ---
Reason for Visit Reason for Visit: Diagnoses Unspecified abdominal pain (06/09/24) Subjective Subjective Abdominal pain better. Has a known abdominal hernia. States that his abdomen was much more distended, improved now. Has had some bowel movements. Objective Data Objective Data Vital Signs: Vital Signs Temp Pulse Resp BP Pulse Ox O2 Del Method 36.8 C 70 18 144/81 H 99 Room Air 06/09/24 07:57 06/09/24 07:57 06/09/24 07:57 06/09/24 07:57 06/09/24 07:57 06/09/24 07:57 Oxygen Delivery Method Room Air Weight: 130.7 kg Body Mass Index (BMI) 41.3 Intake & Output: Intake and Output for Last 24 Hours 06/07/24 06/08/24 06/09/24 23:59 23:59 23:59 Intake Total 500 / 500 Balance 500 / 500 Lab / Micro Data 06/09/24 03:20 06/09/24 03:20 Labs: Laboratory Results - last 24 hr 06/09/24 03:20: WBC 10.0, RBC 4.10 L, Hgb 11.7 L, Hct 34.8 L, MCV 84.9, MCH 28.5, MCHC 33.6, RDW Std Deviation 43.3, RDW Coeff of [place]ash[place] 14.1, Plt Count 190, MPV 8.6, Immature Gran % (Auto) 0.700, Neut % (Auto) 85.1 H, Lymph % (Auto) 9.5 L, [place] % (Auto) 3.9, Eos % (Auto) 0.5, Baso % (Auto) 0.3, Absolute Neuts (auto) 8.5 H, Absolute Lymphs (auto) 0.95, Nucleated RBC % 0, PT 15.0 H, INR 1.2, APTT 35.4, Sodium 121 L, Potassium 4.0, Chloride 86 L, Carbon Dioxide 25.0, Anion Gap 10, BUN 25 H, Creatinine 1.02, Estim Creat Clear Calc 88.13, Est GFR (MDRD) Af Amer 92, Est GFR (MDRD) Non-Af 76, BUN/Creatinine Ratio 24.5 H, Glucose 140 H, Calcium 9.2, Total Bilirubin 0.70, AST 46 H, ALT 60, Alkaline Phosphatase 121 H, Total Protein 8.0, Albumin 2.8 L, Globulin 5.2 H, Albumin/Globulin Ratio 0.5 L 06/09/24 06:51: POC Glucose 136 H Micro: Microbiology 06/09/24 03:58 Stool Stool Occult Blood (RADHA) - Final Radiography Diagnostic Testing: Radiology Impression Abdomen/Pelvis CT 06/09/24 04:00 IMPRESSION: 1. No acute abnormalities identified in the abdomen/pelvis. 2. Diastases of the abdominal rectus muscles with a low ventral abdominal wall hernia containing loops of small bowel. No evidence of strangulation/obstruction. Electronically Signed: Herbie Mcallister MD at 4:35 EDT , Physical Exam Const alert and no apparent distress Resp normal respiratory effort, no retractions, no use of accessory muscles and clear to auscultation bilaterally Cardio regular rate, regular rhythm, S1 normal heart sound and S2 normal heart sound GI normal to inspection, nondistended, normoactive bowel sounds and soft to palpation Neuro Sensorium / Orientation: awake and alert Assessment & Plan Assessment/Plan (1) Abdominal pain: PLAN: Plan Abdominal pain. CT shows non-incarcerated hernia. No overt constipation. I suspect he may have had a transient ileus/SBO, that resolved by the time of imaging. Sciatica steroids. Hyponatremia may be due to HCTZ, which will be held. IVF. Monitor. recheck. Chronic conditions: obesity class III: complicates care and recovery Hypertension: Continue valsartan with hold parameters as needed, PRN hydralazine. Hyperlipidemia: We will continue patient on statin therapy. Diabetes mellitus type II: Hold oral home regimen, continue home insulin regimen, allow clears with ADAT once abdominal discomfort improving, will maintain every 6 hours accu checks w/ ISS while on clears. Gout: We will continue patient home allopurinol regimen. GERD: Continue home PPI. TREY: CPAP nightly. DVT prophylaxis: SCDs. Charges/Coding Procedures Hospitalists Procedures: Other Procedure - See Report (Nonbillable rounding as patient was admitted after midnight.)
[2024-06-09] MEDS: Insulin Lispro 100 UNIT/ML INSULN.PEN SC ×2 (12:12→16:50)
[2024-06-09 12:26] LABS: Bedside Glucose 170 mg/dL (74-106)
--- NOTE | 2024-06-09 13:41 | CHAPLAIN ---
Type of Pastoral Visit _x__ Initial Visit ___ Follow-up Visit ___ On-call Visit ___ General Patient Visit ___ Spiritual Assessment ___ Family Conference ___ Bereavement ___ Rapid Response ___ Code Blue ___ Other (describe below) Pastoral Care Referral From _x__ Patient ___ Family ___ Nurse ___ Physician ___ Roundhouse Supervisor ___ Ticket Maker ___ Other (describe below) Sacrament/Intervention _x__ Active listening ___ Anointing ___ Anglican ___ Bereavement ___ Communion _x__ Daisy exploration ___ ___ Life review _x__ Prayer ___ Reconciliation ___ Sacrament of Sick _x__ Supportive presence ___ Wedding ___ Other (describe below) Pastoral Comments
[2024-06-09 13:52] LABS: Anion Gap 8 (5-15); BUN 24 mg/dL (7-18); BUN/Creat Ratio 24.1 RATIO (10-20); Chloride 87 mmol/L (98-107); EST Glomerular Filtration Rate 78 mL/min (>60); Est Glom Filt Rate - Afr Amer 94 mL/min (>60); Estimated Creatinine Clearance 89.41 ml/min; Glucose 172 mg/dL (74-106); Potassium 4.6 mmol/L (3.5-5.1); Sodium Level 117 mmol/L (136-145)
--- NOTE | 2024-06-09 15:58 | CASEMGMT ---
Met with patient to complete LATHAM form. LATHAM form explained to patient who voiced understanding and signed form. Original form placed in pt?s chart and copy provided to patient. Debi Carias, Discharge Planning Asst
[2024-06-09 16:45] LABS: Urine Sodium 35 mmol/L (Not Establ.)
[2024-06-09 16:49] LABS: Osmolality, Serum 268 mOsm/KG (280-301)
[2024-06-09 16:49] LABS: Osmolality, Urine 215 mOsm/KG
[2024-06-09] MEDS: 0.9% Normal Saline (1000mL) 1,000 ML 125 ML IV (17:09)
[2024-06-09 17:10] LABS: Bedside Glucose 199 mg/dL (74-106)
[2024-06-09] MEDS: Atorvastatin Calcium 10 MG Tablet PO (22:38)
[2024-06-09 23:09] LABS: Bedside Glucose 129 mg/dL (74-106)
[2024-06-10 02:21] VITALS: BP 143/67; PULSE 84; RESP 16; TEMP 36.8; O2SAT 97
[2024-06-10] MEDS: Acetaminophen 325 MG Tablet 650 MG PO (04:46)
[2024-06-10 05:49] VITALS: BMI 41.5
[2024-06-10] MEDS: Dicyclomine 10 MG Capsule 20 MG PO (06:07)
[2024-06-10 06:08] LABS: Absolute Lymphocyte Count 1.37 X10^3/uL (0.83-4.51); Absolute Neutrophil Count 7.9 X10^3/uL (2.0-7.7); Basophil# 0.03 X10^3/uL; Basophil% 0.3 % (0-1); Eosinophil# 0.05 X10^3/uL; Eosinophils% 0.5 % (0-5); Hematocrit 32.8 % (40-54); Lymphocyte # 1.37 X10^3/ul (0.83-4.51); Lymphocyte % 13.9 % (19-41); Mean Corp Hgb Conc 33.5 g/dL (32-36); Mean Corpuscular Hgb 28.7 pg (27.0-32.0); Mean Corpuscular Volume 85.6 fL (80-94); Mean Platelet Vol. 8.8 fl (6.2-12.0); Monocyte# 0.43 X10^3/uL; Monocyte% 4.4 % (0-10); NRBC Flagged by Analyzer 0 % (0-5); Neutrophil # 7.85 X10^3/uL (2.7-7.7); Neutrophil % 79.7 % (47-70); Platelet Count 176 K/mm3 (150-450); RBC Distribution Width CV 14.4 % (11.6-14.6); RBC Distribution Width SD 44.1 fl (35.1-43.9); Red Blood Count 3.83 M/mm3 (4.6-6.2); White Blood Count 9.9 K/mm3 (4.4-11.0)
[2024-06-10 07:02] LABS: ALB/GLOB Ratio 0.5 RATIO (0.9-2.4); AST(SGOT) 36 U/L (15-37); Alanine Aminotransfer ALT/SGPT 44 U/L (16-61); Albumin, Serum 2.5 g/dL (3.2-5.0); Alkaline Phosphatase 97 U/L (45-117); Anion Gap 8 (5-15); BUN 22 mg/dL (7-18); BUN/Creat Ratio 22.3 RATIO (10-20); Calcium,Total 8.8 mg/dL (8.5-10.1); Chloride 93 mmol/L (98-107); Creatinine, Serum 0.98 mg/dL (0.70-1.30); EST Glomerular Filtration Rate 79 mL/min (>60); Est Glom Filt Rate - Afr Amer 96 mL/min (>60); Estimated Creatinine Clearance 91.54 ml/min; Globulin 4.7 g/dL (2.2-4.2); Glucose 115 mg/dL (74-106); Potassium 3.9 mmol/L (3.5-5.1); Protein, Total 7.2 g/dL (6.4-8.2); Sodium Level 123 mmol/L (136-145)
[2024-06-10 07:17] LABS: Bedside Glucose 109 mg/dL (74-106)
[2024-06-10 08:01] VITALS: BP 132/66; PULSE 77; RESP 18; TEMP 36.6; O2SAT 95
[2024-06-10] MEDS: predniSONE 20 MG Tablet 40 MG PO (08:05)
[2024-06-10] MEDS: Gabapentin 100 MG Capsule PO (08:05)
[2024-06-10] MEDS: Losartan Potassium 100 MG Tablet PO (08:05)
[2024-06-10] MEDS: Allopurinol 100 MG Tablet PO (08:05)
[2024-06-10] MEDS: Pantoprazole Sodium 40 MG Tablet PO (08:05)
--- NOTE | 2024-06-10 09:23 | DS.PCM_ITS ---
Providers Date of Admission: 06/09/24 Primary Care Physician: MORA MaxC Reason For Visit: ABDOMINAL PAIN, HYPONATREMIA Diagnosis Discharge Diagnosis (1) Abdominal pain: Status: Acute Code(s): R10.9 - Unspecified abdominal pain Plan Abdominal pain. * CT shows non-incarcerated hernia. No overt constipation. * I suspect he may have had a transient ileus/SBO, that resolved by the time of imaging. * Patient advised that given his hernia, with bowel being up in his hernia, he is at risk for bowel obstruction or incarcerated bowel. He does have worsening abdominal pain, to seek attention. Sciatica * steroids. Hyponatremia * may be due to HCTZ, which will be held. * Overall improved. Would advise outpatient follow-up to ensure ongoing improvement. Chronic conditions: * obesity class III: complicates care and recovery * Hypertension: Continue valsartan with hold parameters as needed, PRN hydralazine. * Hyperlipidemia: We will continue patient on statin therapy. * Diabetes mellitus type II: Hold oral home regimen, continue home insulin regimen, allow clears with ADAT once abdominal discomfort improving, will maintain every 6 hours accu checks w/ ISS while on clears. * Gout: We will continue patient home allopurinol regimen. * GERD: Continue home PPI. * TREY: CPAP nightly. DVT prophylaxis: SCDs. Medications at Discharge Home Medications cinnamon bark 500 mg capsule (Cinnamon) 500 mg PO DAILY 12/17/18 blood-glucose meter (FreeStyle Lite Meter kit) #1 ea 09/10/20 lancets 28 gauge (FreeStyle Lancets) #200 ea 09/10/20 insulin needles (disposable) 30 X 3/4 ##1 12/24/20 Insulin needles #200 ea 12/25/20 insulin glargine 100 unit/mL (3 mL) subcutaneous pen (Lantus Solostar U-100 Insulin) 50 unit (0.5 mL) subcut QPM 3 months #45 mL 08/11/22 pen needle, diabetic 32 gauge x 1/4 (BD Ultra-Fine Micro Pen Needle) #200 ea 10/10/22 esomeprazole magnesium 40 mg capsule,delayed release 40 mg PO DAILY #90 caps 11/25/22 allopurinol 100 mg tablet 100 mg PO DAILY #90 tabs 02/27/23 simvastatin 20 mg tablet 20 mg PO QHS #90 tabs 01/28/23 blood sugar diagnostic (FreeStyle Lite Strips) #200 ea 03/16/23 valsartan 320 mg tablet See Rx Instructions .Route .COMPLEX #90 tabs 10/16/23 aspirin 81 mg capsule 81 mg PO DAILY 05/22/24 dapagliflozin propanediol 10 mg tablet (Farxiga) 10 mg PO DAILY 05/22/24 sitagliptin phosphate 100 mg tablet (Januvia) 100 mg PO DAILY 05/22/24 tirzepatide 10 mg/0.5 mL subcutaneous pen injector (Mounjaro) 10 mg subcut QWEEK 06/02/24 hydrocodone-acetaminophen 5-325mg 5mg-325mg 1 tab PO Q6H PRN PRN Pain 3 days #12 TABLETS 06/07/24 meloxicam 15 mg tablet 15 mg PO DAILY PRN pain 06/09/24 acetaminophen 325 mg tablet 1,000 mg (3.0769 x 325 mg) PO Q8H PRN PRN fever #0 tabs 06/10/24 polyethylene glycol 3350 17 gram/dose oral powder (Miralax) 17 g PO DAILY PRN constipation #119 grams 06/10/24 prednisone 20 mg tablet 40 mg (2 x 20 mg) PO BREAKFAST #6 tabs 06/10/24 Hospital Course Operations None Procedures None Summary of Care Provided Minutes Spent on Discharge: 33 Hospital Course: Patient presents with abdominal pain. His abdomen was distended and is concerning for constipation as he had been restarted on [place] for sciatica. CAT scan did not show any overt constipation though the patient did have bowel movements afterwards. He stated that his abdomen was very distended. Did show that he had a very large hernia with bowel and the confines of the hernia. Patient has had bowel movements and believes been feeling better. Suspect the patient may have had a transient bowel obstruction within the hernia itself as he did state that it was distended but it is no longer distended at this time. He was started on prednisone. Still having the sciatic symptoms on his left. Patient has been started on prednisone which will continued patient is to follow-up with physical therapy. Feels noted when he came in his sodium is 121. This is most likely related with hydrochlorothiazide which was discontinued. Follow-up labs show that his sodium went down to 117 but the subsequent shows up to 123. No need to be held moving forward. Otherwise patient is doing well and to be discharged home in stable condition. Physical Exam Const alert and no apparent distress HEENT normocephalic and head/scalp atraumatic GI GI Narrative: On the local hernia. Back/Spine Lumbar Spine / Lower Back: paraspinal muscle tenderness left Weight / BMI Weight Weight: 131.5 kg Body Mass Index (BMI) 41.5 ABG / Lab / Microbiology Data 06/10/24 05:33 06/10/24 05:33 Laboratory: Laboratory Results - last 24 hr 06/09/24 12:06: POC Glucose 170 H 06/09/24 12:38: Sodium 117 L*, Potassium 4.6, Chloride 87 L, Carbon Dioxide 22.0, Anion Gap 8, BUN 24 H, Creatinine 1.00, Estim Creat Clear Calc 89.41, Est GFR (MDRD) Af Amer 94, Est GFR (MDRD) Non-Af 78, BUN/Creatinine Ratio 24.1 H, G lucose 172 H, Calcium 9.0 06/09/24 15:30: Urine Osmolality 215, Ur Random Sodium 35 06/09/24 15:40: Serum Osmolality 268 L 06/09/24 16:49: POC Glucose 199 H 06/09/24 22:37: POC Glucose 129 H 06/10/24 05:33: WBC 9.9, RBC 3.83 L, Hgb 11.0 L, Hct 32.8 L, MCV 85.6, MCH 28.7, MCHC 33.5, RDW Std Deviation 44.1 H, RDW Coeff of [place] 14.4, Plt Count 176, MPV 8.8, Immature Gran % (Auto) 1.200 H, Neut % (Auto) 79.7 H, Lymph % (Auto) 13.9 L , Perkins % (Auto) 4.4, Eos % (Auto) 0.5, Baso % (Auto) 0.3, Absolute Neuts (auto) 7.9 H, Absolute Lymphs (auto) 1.37, Nucleated RBC % 0, Sodium 123 L, Potassium 3.9, Chloride 93 L, Carbon Dioxide 22.0, Anion Gap 8, BUN 22 H, Creatinine 0.98, Estim Creat Clear Calc 91.54, Est GFR (MDRD) Af Amer 96, Est GFR (MDRD) Non-Af 79, BUN/Creatinine Ratio 22.3 H, Glucose 115 H, Calcium 8.8, Total Bilirubin 0.50, AST 36, ALT 44, Alkaline Phosphatase 97, Total Protein 7.2, Albumin 2.5 L, Globulin 4.7 H, Albumin/Globulin Ratio 0.5 L, Cortisol 17.90 06/10/24 06:06: POC Glucose 109 H Microbiology: Microbiology 06/09/24 03:58 Stool Stool Occult Blood (RADHA) - Final D/C Instructions Discharge Diet: 2000 Calorie Control Diet Meaningful Use Info Meaningful Use Meaningful Use Diagnoses (Choose all that apply): None applicable Ischemic Stroke Statin Dosing Therapy Reference: STATIN DOSE THERAPY REFERENCE: * Patients > 75 years receive moderate or high dose statin therapy. * Patients 75 years or YOUNGER should receive HIGH intensity statin dose unless contraindicated. You will be required to document reason for non-treatment if statin daily dose does not meet guidelines. HIGH DOSE STATIN THERAPY DAILY Atorvastatin > than or = to 40 mg Rosuvastatin > than or = to 20 mg Amlodipine + Atorvastatin > than or = to 2.5/40 mg Ezetimibe + Simvastatin 10/80 mg Simvastatin 80mg Discharge Plan Admission Admit Date/Time: 06/09/24 05:06 Primary Reason for Your Visit: Hypontremia Attending Provider: Mariusz Lopez Primary Care Provider: Juan Peñaloza [facility] Consulting Providers: Chioma Jaime Instructions Additional Instructions / Restrictions: For your bowel pain, may have been due to constipation but concerned, with the distention, they may have had temporary bowel obstruction with your hernia. Did advise if you do have worsening abdominal pain particular in your hernia which is rather large, to seek attention. You may follow-up with general surgeon for further evaluation to see if you would be a candidate to have your hernia repaired. Your sodium was low when you came in here and is still low but overall better. I think this is most likely due to the medication you are taking, hydrochlorothiazide. It is advised that you discontinue this medication moving forward. Discharge Orders/Prescriptions Prescriptions: New acetaminophen 325 mg Tablet 1,000 mg PO Q8H PRN PRN (Reason: fever) Qty: 0 0RF prednisone 20 mg Tablet 40 mg PO BREAKFAST Qty: 6 0RF polyethylene glycol 3350 [Miralax] 17 gram/dose powder 17 g PO DAILY PRN (Reason: constipation) Qty: 119 0RF Continued cinnamon bark [Cinnamon] 500 mg capsule 500 mg PO DAILY (DME) blood-glucose meter [FreeStyle Lite Meter] Kit See Rx Instructions .ROUTE .MEDSUPPLY Qty: 1 0RF Rx Instructions: As directed, check blood glucose daily for type 2 DM (DME) lancets [FreeStyle Lancets] 28 gauge misc See Rx Instructions .ROUTE .MEDSUPPLY Qty: 200 3RF Rx Instructions: check blood glucose 3x daily for type 2 DM (DME) insulin needles (disposable) 30 X 3/4 needle See Rx Instructions .ROUTE .MEDSUPPLY Qty: 1 Rx Instructions: As directed Lantus Solostar U-100 Insulin 100 unit/mL (3 mL) insulin pen 50 unit SC QPM 90 Days Qty: 45 3RF Mounjaro 10 mg/0.5 mL pen injector 10 mg subcut QWEEK hydrocodone-acetaminophen 5-325 mg tablet 1 tab PO Q6H PRN PRN (Reason: Pain) 3 Days Qty: 12 0RF Januvia 100 mg tablet 100 mg PO DAILY dapagliflozin propanediol [Farxiga] 10 mg tablet 10 mg PO DAILY aspirin 81 mg capsule 81 mg PO DAILY meloxicam 15 mg tablet 15 mg PO DAILY PRN (Reason: pain) (DME) Insulin needles See Rx Instructions .Route .MEDSUPPLY Qty: 200 3RF Rx Instructions: TID, As directed (DME) pen needle, diabetic [BD Ultra-Fine Micro Pen Needle] 32 gauge x 1/4 needle See Rx Instructions .ROUTE .MEDSUPPLY Qty: 200 3RF Rx Instructions: TID, As directed esomeprazole magnesium 40 mg capsule,delayed release(DR/EC) 40 mg PO DAILY Qty: 90 3RF allopurinol 100 mg tablet 100 mg PO DAILY Qty: 90 3RF simvastatin 20 mg tablet 20 mg PO QHS Qty: 90 3RF (DME) FreeStyle Lite Strips Strip See Rx Instructions .ROUTE .MEDSUPPLY Qty: 200 3RF Rx Instructions: check blood glucose 3x daily for type 2 DM valsartan 320 mg tablet See Rx Instructions .ROUTE .COMPLEX Qty: 90 0RF Dose Instruction: TAKE 1 TABLET DAILY Rx Instructions: TAKE 1 TABLET DAILY Discontinued hydrochlorothiazide 25 mg tablet 12.5 mg PO QAM Referrals / Follow Up: Juan Peñaloza VSDonna, OPERATIONS TECH-C [Primary Care Provider] - Within 2 Weeks Disposition Disposition (needs filled in before D/C Order can be placed): Home, Self Care Charges/Coding Visit Charges Inpatient E&M: 56180 Disch Hosp >30min
--- NOTE | 2024-06-10 10:02 | CASEMGMT ---
Order for Dc placed. This RN CM to pt room at this time. Pt states that he lives at home with his SO and that she will drive him home today from the hospital. Pt states that he has a working BGM and supplies to check his BS levels. Pt states that he has a CBGM being delivered to his home from [facility]. Pt states that he is independent and denies the need for HHC or OP therapy. 6-Click is 24. Pt denies further questions or concerns and is ready for DC home today.
--- NOTE | 2024-06-10 10:10 | PHA.DC_ITS ---
Pharmacy [facility] has performed discharge medication reconciliation and counseling for this patient. The patient's discharge medication list was reviewed for discrepancies and discrepancies were resolved. The patient was counseled on the following discharge medications and changes in medications for homegoing were reviewed. The Reason for Use, instructions for use, and potential side effects were reviewed for all new medications. The patient's questions regarding all of their medications were answered. 1. Acetaminophen 1000 mg PO Q8H PRN fever 2. Prednisone 40 mg PO daily x 3 dyas 3. Polyethylene glycol 17 grams daily PRN constipation The patient was able to verbally demonstrate an understanding of their discharge medications. The patient was counselled on new medications by manager clinical pharmacy Myles. Medications at Discharge Home Medications cinnamon bark 500 mg capsule (Cinnamon) 500 mg PO DAILY 12/17/18 blood-glucose meter (FreeStyle Lite Meter kit) #1 ea 09/10/20 lancets 28 gauge (FreeStyle Lancets) #200 ea 09/10/20 insulin needles (disposable) 30 X 3/4 ##1 12/24/20 Insulin needles #200 ea 12/25/20 insulin glargine 100 unit/mL (3 mL) subcutaneous pen (Lantus Solostar U-100 Insulin) 50 unit (0.5 mL) subcut QPM 3 months #45 mL 08/11/22 pen needle, diabetic 32 gauge x 1/4 (BD Ultra-Fine Micro Pen Needle) #200 ea 10/10/22 esomeprazole magnesium 40 mg capsule,delayed release 40 mg PO DAILY #90 caps 11/25/22 allopurinol 100 mg tablet 100 mg PO DAILY #90 tabs 01/26/23 simvastatin 20 mg tablet 20 mg PO QHS #90 tabs 01/28/23 blood sugar diagnostic (FreeStyle Lite Strips) #200 ea 03/16/23 valsartan 320 mg tablet See Rx Instructions .Route .COMPLEX #90 tabs 10/16/23 aspirin 81 mg capsule 81 mg PO DAILY 05/22/24 dapagliflozin propanediol 10 mg tablet (Farxiga) 10 mg PO DAILY 05/22/24 sitagliptin phosphate 100 mg tablet (Januvia) 100 mg PO DAILY 05/22/24 tirzepatide 10 mg/0.5 mL subcutaneous pen injector (Angelique) 10 mg subcut QWEEK 06/02/24 hydrocodone-acetaminophen 5-325mg 5mg-325mg 1 tab PO Q6H PRN PRN Pain 3 days #12 TABLETS 06/07/24 meloxicam 15 mg tablet 15 mg PO DAILY PRN pain 06/09/24 acetaminophen 325 mg tablet 1,000 mg (3.0769 x 325 mg) PO Q8H PRN PRN fever #0 tabs 06/10/24 polyethylene glycol 3350 17 gram/dose oral powder (Miralax) 17 g PO DAILY PRN constipation #119 grams 06/10/24 prednisone 20 mg tablet 40 mg (2 x 20 mg) PO BREAKFAST #6 tabs 06/10/24
== END 2024-06-10 11:18 | disposition home or self-care (01) ==
LOC: ED 04:05 → MS3 05:25
PROVIDERS: Admitting Provider Family Medicine; Emergency Provider Emergency Medicine; PCP Nurse Practitioner Family
DX: K42.9 Umbilical hernia without obstruction or gangrene (principal); E66.01 Morbid (severe) obesity due to excess calories; Z68.41 Body mass index [BMI] 40.0-44.9, adult; E11.9 Type 2 diabetes mellitus without complications; Z79.4 Long term (current) use of insulin; M54.32 Sciatica, left side; K59.00 Constipation, unspecified; E87.1 Hypo-osmolality and hyponatremia; K92.2 Gastrointestinal hemorrhage, unspecified; R06.02 Shortness of breath; E78.00 Pure hypercholesterolemia, unspecified; I10 Essential (primary) hypertension; Z87.891 Personal history of nicotine dependence; G47.33 Obstructive sleep apnea (adult) (pediatric); M10.9 Gout, unspecified; Z79.899 Other long term (current) drug therapy; Z79.82 Long term (current) use of aspirin; D64.9 Anemia, unspecified
CPT/HCPCS: 36415; 74177; 80048; 80053; 82274; 82533; 82962; 83930; 83935; 84300; 85025; 85610; 85730; 94668; 96361; 96374; 99221; 99283; J7030; Q9967; A4216; G0378; J2405

== ENCOUNTER 2024-06-15 23:07 | Emergency (ER) | payer MEDICARE, BC, SELFPAY ==
[2024-06-15 23:08] VITALS: BP 145/99; PULSE 87; RESP 16; TEMP 36.4; O2SAT 99; BMI 41.1
[2024-06-16] MEDS: morphine 10 MG/ML Syringe 8 MG IM (01:08)
[2024-06-16] MEDS: diazePAM 5 MG Tablet PO (01:08)
[2024-06-16] MEDS: Ondansetron ODT 4 MG Tablet PO (01:08)
--- NOTE | 2024-06-16 01:48 | EX.ED.DYSGE1 ---
HPI History of Present Illness Chief Complaint: Back Informant: patient and spouse/S.O. Narrative Narrative: Patient is a 74-year-old male with past medical history of hypertension hyperlipidemia type 2 insulin-dependent diabetes and recurrent back pain. He states he was in the hospital recently secondary to bilateral low back pain has been going on for roughly 1 month. He states there was no trauma or excessive activity prior to the pain beginning. He denies any loss of bowel or bladder control or IV drug use. He denies any hematuria or dysuria. He states that he was seen in the hospital recently for the same issue and at that time blood work was obtained which showed hyponatremia with a sodium reaching 117. He states they felt it was related to his diuretic so this was stopped and his sodium began to increase and he was discharged home. He reports he is taking meloxicam and Flexeril but despite doing this he has had no symptom improvement and therefore comes in for repeat evaluation as he cannot sleep secondary to the pain this evening. PFSH PFSH Medical History Sinusitis Morbid obesity COVID-19 Routine health maintenance Colon cancer screening Type II diabetes mellitus Mitral valve regurgitation Heart murmur GERD (gastroesophageal reflux disease) Anemia BPH (benign prostatic hyperplasia) Obstructive sleep apnea Tricuspid valve regurgitation Kidney stones High cholesterol Hypertension Gout Diabetes Back problem Seasonal allergies Alcohol abuse Home Medications ?Medication ?Instructions ?Recorded ?Last Taken ?Type cinnamon bark 500 mg capsule 500 mg PO DAILY 12/17/18 Unknown History (Cinnamon) blood-glucose meter (FreeStyle #1 ea 09/10/20 Unknown Rx Lite Meter kit) lancets 28 gauge (FreeStyle #200 ea 09/10/20 Unknown Rx Lancets) insulin needles (disposable) 30 X ##1 12/24/20 Unknown History 3/4 Insulin needles #200 ea 12/25/20 Unknown Rx insulin glargine 100 unit/mL (3 50 unit (0.5 mL) subcut QPM 3 08/11/22 Unknown Rx mL) subcutaneous pen (Lantus months #45 mL Solostar U-100 Insulin) pen needle, diabetic 32 gauge x #200 ea 10/10/22 Unknown Rx 1/4 (BD Ultra-Fine Micro Pen Needle) esomeprazole magnesium 40 mg 40 mg PO DAILY #90 caps 11/25/22 Unknown Rx capsule,delayed release allopurinol 100 mg tablet 100 mg PO DAILY #90 tabs 01/26/23 Unknown Rx simvastatin 20 mg tablet 20 mg PO QHS #90 tabs 01/28/23 Unknown Rx blood sugar diagnostic (FreeStyle #200 ea 03/16/23 Unknown Rx Lite Strips) valsartan 320 mg tablet See Rx Instructions .Route 10/16/23 Unknown Rx .COMPLEX #90 tabs aspirin 81 mg capsule 81 mg PO DAILY 05/22/24 Unknown History dapagliflozin propanediol 10 mg 10 mg PO DAILY 05/22/24 Unknown History tablet (Farxiga) sitagliptin phosphate 100 mg 100 mg PO DAILY 05/22/24 Unknown History tablet (Januvia) tirzepatide 10 mg/0.5 mL 10 mg subcut QWEEK 06/02/24 Unknown History subcutaneous pen injector ([place]) hydrocodone-acetaminophen 5-325mg 1 tab PO Q6H PRN PRN Pain 3 days 06/07/24 Unknown Rx 5mg-325mg #12 TABLETS meloxicam 15 mg tablet 15 mg PO DAILY PRN pain 06/09/24 Unknown History acetaminophen 325 mg tablet 1,000 mg (3.0769 x 325 mg) PO Q8H 06/10/24 Unknown Rx PRN PRN fever #0 tabs polyethylene glycol 3350 17 17 g PO DAILY PRN constipation 06/10/24 Unknown Rx gram/dose oral powder (Miralax) #119 grams prednisone 20 mg tablet 40 mg (2 x 20 mg) PO BREAKFAST #6 06/10/24 Unknown Rx tabs hydrocodone-acetaminophen 5-325mg 1 tab PO Q6H PRN PRN Pain 3 days 06/16/24 Unknown Rx 5mg-325mg #12 TABLETS Allergy/AdvReac Type Severity Reaction Status Date / Time oxycodone Allergy Itching Verified 06/09/24 03:13 Family History (Updated 06/09/24 @ 05:[address] Chioma Jaime MD) Father Arthritis Myocardial infarction Hypertension Mother , at age 48 during hernia repair secondary to anesthetic complications. No problems noted. Surgical History (Updated 06/09/24 @ 05:[address] Chioma Jaime MD) No history of previous surgery Social History (Updated 06/09/24 @ 05:[address] Chioma Jaime MD) household members: significant other Smoking Status: Never smoker Tobacco: How many years used: 5 how long ago did patient quit smoking: Quit 1998, smoked 1pk/week since 20 until quit. alcohol intake: former year quit: 2018 details: Sober since 2018. substance use type: does not use what type of physical activity do you participate in: bicycling frequency: daily ROS ROS ED Constitutional Constitutional ED: Denies chills or fever(s) Eyes Eyes: Denies change in vision ENT ENT ED: Denies sore throat Cardiovascular Cardiovascular: Denies chest pain Respiratory/Chest Respiratory/Chest: Denies cough or dyspnea Gastrointestinal Gastrointestinal: Denies abdominal pain, diarrhea, nausea or vomiting Genitourinary Genitourinary ED: Denies dysuria, hematuria or urinary frequency Musculoskeletal Musculoskeletal: Reports back pain Integumentary Denies rash Neurologic Neurologic: Denies headache(s) Hematologic/Lymphatic Hematologic/Lymphatic: Denies easy bleeding or easy bruising EXAM Physical Exam Const Vital Signs: 06/15/24 23:08 06/16/24 01:54 Temperature 97.6 F L 98.3 F Temperature Source Oral Pulse Rate 87 80 Respiratory Rate 16 18 Blood Pressure 145/99 H 156/72 H Blood Pressure Mean 114 100 Pulse Ox 99 95 Oxygen Delivery Method Room Air Positive well nourished, well developed and obese General Appearance ED: well developed; Negative for pallor Nutritional Appearance: obese HEENT HEENT Narrative: Normocephalic atraumatic Eyes PERRL and EOMs intact bilaterally General Eye ED: Negative for scleral icterus Neck supple Neck Narrative: No nuchal rigidity or meningeal signs noted Resp normal respiratory effort and clear to auscultation bilaterally Cardio regular rate and regular rhythm Rate: other Other Details: Radial and carotid pulses are equal and symmetric GI normal to inspection, nondistended, normoactive bowel sounds, non-tender, non-distended and no masses GI Narrative: Patient has a ventral hernia that is reducible in nature No voluntary guarding or rigidity. No pulsatile mass or fluid wave. No organomegaly Auscultation: normoactive bowel sounds Palpation: soft Back/Spine no CVA tenderness Back/Spine Narrative: No bony deformity or step-off of the thoracic or lumbar spine no midline tenderness to palpation No saddle anesthesia. Negative straight leg raise. No clonus or Babinski. Patellar reflexes are plus 1 out of 4 bilaterally No overlying soft tissue changes to suggest trauma or infection Extremity Extremity Narrative: +2-3 pitting edema to the bilateral lower extremities that is equal and symmetric Negative Homans' sign bilaterally Neuro oriented x3, CN's II-XII intact bilaterally and no sensory deficits noted Sensorium / Orientation: alert Psych mental status grossly normal Skin no rashes or lesions noted General Skin Exam: Negative for jaundice or pallor MDM MDM MDM Narrative Medical decision making narrative: Patient arrived to the ER hypertensive otherwise with stable vitals. He reported having back pain for the past month with no trauma or excessive activity. Therefore my concern for a compression fracture or spondylolisthesis is low. He denies any dysuria or hematuria going against UTI/pyelonephritis or kidney stone. He also denied any recent IV drug use or loss of bowel or bladder control going against epidural abscess or cauda equina syndrome. Therefore at this time I do not feel there is need for repeat imaging studies as he had a CT scan at his last visit and as he reports his sodium has been corrected now that his diuretic has been stopped and that is being followed as an outpatient I do not feel the need to recheck it at this time as it should not correlate to his increased back pain. Therefore patient will simply be medicated in the ER with stronger pain medication but as I have low concern for compression fracture nerve compression epidural abscess cauda equina syndrome UTI or pyelonephritis there is no need for further workup and he is otherwise safe for discharge. History & Record Review Discussion w/independent historian: Patient and Significant other Discharge Plan Triage Chief Complaint: Back ED Provider: Steve Petersen Dx/Rx/DC Orders Clinical Impression: Acute exacerbation of chronic low back pain, Diabetes mellitus type 2, insulin dependent, Hypertension, Hyperlipidemia, Morbid obesity Instructions: ED Back Care Tips, ED Back Pain (Acute or Chronic) Prescriptions: New hydrocodone-acetaminophen 5-325 mg tablet 1 tab PO Q6H PRN PRN (Reason: Pain) 3 Days Qty: 12 0RF No Action cinnamon bark [Cinnamon] 500 mg capsule 500 mg PO DAILY (DME) blood-glucose meter [FreeStyle Lite Meter] Kit See Rx Instructions .ROUTE .MEDSUPPLY Qty: 1 0RF Rx Instructions: As directed, check blood glucose daily for type 2 DM (DME) lancets [FreeStyle Lancets] 28 gauge misc See Rx Instructions .ROUTE .MEDSUPPLY Qty: 200 3RF Rx Instructions: check blood glucose 3x daily for type 2 DM (DME) insulin needles (disposable) 30 X 3/4 needle See Rx Instructions .ROUTE .MEDSUPPLY Qty: 1 Rx Instructions: As directed Lantus Solostar U-100 Insulin 100 unit/mL (3 mL) insulin pen 50 unit SC QPM 90 Days Qty: 45 3RF Mounjaro 10 mg/0.5 mL pen injector 10 mg subcut QWEEK hydrocodone-acetaminophen 5-325 mg tablet 1 tab PO Q6H PRN PRN (Reason: Pain) 3 Days Qty: 12 0RF Januvia 100 mg tablet 100 mg PO DAILY dapagliflozin propanediol [Farxiga] 10 mg tablet 10 mg PO DAILY aspirin 81 mg capsule 81 mg PO DAILY meloxicam 15 mg tablet 15 mg PO DAILY PRN (Reason: pain) acetaminophen 325 mg Tablet 1,000 mg PO Q8H PRN PRN (Reason: fever) Qty: 0 0RF prednisone 20 mg Tablet 40 mg PO BREAKFAST Qty: 6 0RF polyethylene glycol 3350 [Miralax] 17 gram/dose powder 17 g PO DAILY PRN (Reason: constipation) Qty: 119 0RF (DME) Insulin needles See Rx Instructions .Route .MEDSUPPLY Qty: 200 3RF Rx Instructions: TID, As directed (DME) pen needle, diabetic [BD Ultra-Fine Micro Pen Needle] 32 gauge x 1/4 needle See Rx Instructions .ROUTE .MEDSUPPLY Qty: 200 3RF Rx Instructions: TID, As directed esomeprazole magnesium 40 mg capsule,delayed release(DR/EC) 40 mg PO DAILY Qty: 90 3RF allopurinol 100 mg tablet 100 mg PO DAILY Qty: 90 3RF simvastatin 20 mg tablet 20 mg PO QHS Qty: 90 3RF (DME) FreeStyle Lite Strips Strip See Rx Instructions .ROUTE .MEDSUPPLY Qty: 200 3RF Rx Instructions: check blood glucose 3x daily for type 2 DM valsartan 320 mg tablet See Rx Instructions .ROUTE .COMPLEX Qty: 90 0RF Dose Instruction: TAKE 1 TABLET DAILY Rx Instructions: TAKE 1 TABLET DAILY Primary Care Provider: Juan Peñaloza Referrals: Juan Peñaloza, [facility] MA[employer] CERTIFIED RV TECHNICIAN-C [Primary Care Provider] - Activity Restrictions/Additional Instructions: Please continue the cyclobenzaprine and meloxicam that were prescribed recently that the hydrocodone/Joiner for improved pain control. If this does help control pain please talk to your family doctor about a prolonged prescription and also follow-up with your family doctor to discuss need for MRI if back pain persists. Return to the ER should you have any further concerns Print Language: French Disposition Disposition: Home, Self Care Discharge Date/Time: 06/16/24 01:56
[2024-06-16 01:54] VITALS: BP 156/72; PULSE 80; RESP 18; TEMP 36.8; O2SAT 95
== END 2024-06-16 01:56 | disposition home or self-care (01) ==
PROVIDERS: Emergency Provider Emergency Medicine; PCP Nurse Practitioner Family; Visit Provider Emergency Medicine
DX: M54.50 Low back pain, unspecified (principal); E66.01 Morbid (severe) obesity due to excess calories; E11.9 Type 2 diabetes mellitus without complications; Z79.4 Long term (current) use of insulin; G89.29 Other chronic pain; I10 Essential (primary) hypertension; Z87.891 Personal history of nicotine dependence; E87.1 Hypo-osmolality and hyponatremia; E78.00 Pure hypercholesterolemia, unspecified; Z79.899 Other long term (current) drug therapy; K21.9 Gastro-esophageal reflux disease without esophagitis; R60.0 Localized edema
CPT/HCPCS: 36415; 80048; 96372; 99282

== ENCOUNTER → 2024-06-15 | Outpatient (CLI) | payer MEDICARE, BC, SELFPAY ==
[2024-06-15 13:28] LABS: Anion Gap 9 (5-15); BUN 23 mg/dL (7-18); BUN/Creat Ratio 24.8 RATIO (10-20); Calcium,Total 8.8 mg/dL (8.5-10.1); Chloride 100 mmol/L (98-107); Creatinine, Serum 0.93 mg/dL (0.70-1.30); EST Glomerular Filtration Rate 85 mL/min (>60); Est Glom Filt Rate - Afr Amer 102 mL/min (>60); Glucose 129 mg/dL (74-106); Potassium 3.9 mmol/L (3.5-5.1); Sodium Level 133 mmol/L (136-145)
== END | disposition home or self-care (01) ==
LOC: VSLAB 11:39
PROVIDERS: PCP Nurse Practitioner Family; Visit Provider Nurse Practitioner Family
DX: E87.1 Hypo-osmolality and hyponatremia (principal)
CPT/HCPCS: 36415; 80048

== ENCOUNTER → 2024-06-21 | Outpatient (CLI) | payer MEDICARE, BC, SELFPAY ==
[2024-06-21 09:15] LABS: Anion Gap 5 (5-15); BUN 38 mg/dL (7-18); BUN/Creat Ratio 33.3 RATIO (10-20); Calcium,Total 8.6 mg/dL (8.5-10.1); Chloride 107 mmol/L (98-107); Creatinine, Serum 1.14 mg/dL (0.70-1.30); EST Glomerular Filtration Rate 67 mL/min (>60); Est Glom Filt Rate - Afr Amer 81 mL/min (>60); Glucose 111 mg/dL (74-106); Potassium 3.6 mmol/L (3.5-5.1); Sodium Level 139 mmol/L (136-145)
== END | disposition home or self-care (01) ==
LOC: LAB 08:14
PROVIDERS: PCP Nurse Practitioner Family; Referring Provider Nurse Practitioner Family; Visit Provider Nurse Practitioner Family
DX: E22.2 Syndrome of inappropriate secretion of antidiuretic hormone (principal)
CPT/HCPCS: 36415; 80048

== ENCOUNTER → 2024-09-07 | Outpatient (CLI) | payer MEDICARE, BC, SELFPAY ==
[2024-09-07 13:23] LABS: Anion Gap 7 (5-15); BUN 19 mg/dL (7-18); BUN/Creat Ratio 17.1 RATIO (10-20); Calcium,Total 9.7 mg/dL (8.5-10.1); Chloride 102 mmol/L (98-107); Creatinine, Serum 1.11 mg/dL (0.70-1.30); EST Glomerular Filtration Rate 69 mL/min (>60); Est Glom Filt Rate - Afr Amer 83 mL/min (>60); Glucose 121 mg/dL (74-106); Potassium 3.6 mmol/L (3.5-5.1); Sodium Level 136 mmol/L (136-145)
[2024-09-07 14:01] LABS: Osmolality, Urine 591 mOsm/KG
== END | disposition home or self-care (01) ==
PROVIDERS: PCP Nurse Practitioner Family; Referring Provider Internal Medicine Nephrology; Visit Provider Internal Medicine Nephrology
DX: N18.2 Chronic kidney disease, stage 2 (mild) (principal)
CPT/HCPCS: 36415; 80048; 83935

== ENCOUNTER → 2025-06-28 | Outpatient (CLI) | payer MEDICARE, BC, SELFPAY ==
[2025-06-28 16:37] LABS: Hematocrit 38.5 % (40-54); Hemoglobin 11.9 g/dL (13.0-16.5); Immature Granulocytes Count 0.030 X10^3/uL (0.0-0.0); Mean Corp Hgb Conc 30.9 g/dL (32-36); Mean Corpuscular Volume 92.3 fL (80-94); Mean Platelet Vol. 10.1 fl (6.2-12.0); NRBC Flagged by Analyzer 0 % (0-5); Platelet Count 170 K/mm3 (150-450); RBC Distribution Width CV 14.6 % (11.6-14.6); RBC Distribution Width SD 49.2 fl (35.1-43.9); Red Blood Count 4.17 M/mm3 (4.6-6.2); White Blood Count 7.4 K/mm3 (4.4-11.0)
[2025-06-28 17:15] LABS: AST(SGOT) 25 U/L (<=37); Alanine Aminotransfer ALT/SGPT 28 U/L (<=46); Albumin, Serum 4.1 g/dL (3.4-4.8); Alkaline Phosphatase 73 U/L (40-129); Anion Gap 12 (5-15); BUN 28 mg/dL (4-19); BUN/Creat Ratio 23.5 RATIO (10-20); Calcium,Total 9.7 mg/dL (7.6-11.0); Carbon Dioxide 24.3 mmol/L (21.0-32.0); Chloride 101 mmol/L (98-108); Cholesterol 155 mg/dL (<=200); Globulin 3.6 g/dL (2.2-4.2); Glucose 118 mg/dL (70-99); Low Density Lipoprotein Calc. 50 mg/dL; PSA,Total - Annual Screen 1.68 ng/mL (0.02-4.00); Potassium 4.4 mmol/L (3.3-5.1); Triglycerides 358 mg/dL; Very Low Density Lipoprotein 72 mg/dL (5-40); cholesterol:hdl ratio screen 4.61
== END | disposition home or self-care (01) ==
LOC: VSLAB 13:57
PROVIDERS: PCP Nurse Practitioner Family
DX: E11.9 Type 2 diabetes mellitus without complications (principal); E78.5 Hyperlipidemia, unspecified; Z12.5 Encounter for screening for malignant neoplasm of prostate
CPT/HCPCS: 36415; 80053; 80061; 84153; 84443; 85025; G0103

== ENCOUNTER → 2025-07-11 | Outpatient (CLI) | payer MEDICARE, BC, SELFPAY ==
[2025-07-11 17:47] LABS: FOLATES,SERUM (FOLIC ACID) 19.10 ng/mL (4.60-34.80)
[2025-07-11 17:48] LABS: Ferritin 156 ng/mL (37-417); Vitamin B12 917 pg/mL (180-914)
[2025-07-11 19:40] LABS: Iron 53 ug/dL (65-175); Iron Binding Capacity,Total 319 ug/dL (250-450); Iron Binding Capacity,Unsat 266 ug/dL (228-428)
== END | disposition home or self-care (01) ==
LOC: VSLAB 15:13
PROVIDERS: PCP Nurse Practitioner Family
DX: D64.9 Anemia, unspecified (principal)
CPT/HCPCS: 36415; 82607; 82728; 82746; 83540; 83550